=== PATIENT | female | born 1950 | race Caucasian/White ===

== ENCOUNTER 2017-12-09 12:52 | Outpatient (RCR) | payer OTHER, SELFPAY ==
--- NOTE | 2017-12-09 17:48 | PT.OTN ---
Current Diagnoses Benign paroxysmal vertigo, unspecified ear Transition note: On December 06, 2017 our therapy services consisting of Speech, Occupational, and Physical Therapy transitioned from the [employer] electronic documentation system to a new [employer] electronic documentation system.?? All documentation prior to December 06 can be found under [employer] saved data. From December 06 forward all medical record documentation will be in [employer] 6.1.
--- NOTE | 2017-12-12 08:21 | PT.OIE ---
Current Diagnoses Benign paroxysmal vertigo, unspecified ear (12/09/17) Past Medical History (Last Updated 12/12/17 @ 07:48 by Eladia Aj, PT) After cataract of right eye not obscuring vision (Acute) Strabismus, mechanical (Acute) Physical Therapy Initial Evaluation PT-OP-A Visit Information Start: 12/09/17 08:12 Freq: Status: Active Protocol: Activity Type Activity Date Activity User E-Sign Co-Sign Detail Recorded Client Recorded Date Recorded By Document 12/09/17 14:15 AMB [email or web address] 12/09/17 14:16 AMB 12/09/17 14:15 Out-Patient Physical Therapy Visit Information [Visit Information] -Visit Type Initial Evaluation -Visit Note 15 visits authorized until 02/20/18 -Visit Start Time 13:00 -Visit Stop Time 13:45 -Total Visit Minutes 45 -Visit Number 1 [Evaluation Information] -Evaluation Date 12/09/17 PT-OP-B Current Condition Start: 12/09/17 08:12 Freq: Status: Active Protocol: Activity Type Activity Date Activity User E-Sign Co-Sign Detail Recorded Client Recorded Date Recorded By Document 12/09/17 14:15 AMB [email or web address] 12/12/17 07:46 AMB 12/09/17 14:15 Current Condition [History of Current Condition] -Current Complaints Spinning dizziness getting in and out of bed -History of Current Condition The patient states that in 1995 she had her first episode of BPPV . She had a bad bout of it in July 2017 at which point she came to this clinic and I worked with her for a few visits until her symptoms resolved. About a month ago the symptoms resolved. [Prior Functional Status] -Baseline Function- ADL's Independent -Baseline Function- Mobility Independent [Current Functional Impairments ( Reported)] -Functional Limitations- ADL's Pt requires extra time due to feeling off balance [Personal Factors] -Other Personal Factors That May Recurrent Effect Therapy/Recovery history of BPPV , R eye has had two surgeries to tie the muscles because it was lazy PT-OP-C Subjective Start: 12/09/17 08:12 Freq: Status: Active Protocol: Activity Type Activity Date Activity User E-Sign Co-Sign Detail Recorded Client Recorded Date Recorded By Document 12/09/17 14:15 AMB [email or web address] 12/12/17 07:46 AMB 12/09/17 14:15 OP-PT Subjective [Patient Comments] -Patient Comments The patient states she was not spinning this morning, but still feels a bit off. She tried a couple self Maldonado treatments, but they did not seem to help. PT-OP-O Vestibular Start: 12/09/17 08:12 Freq: Status: Active Protocol: Activity Type Activity Date Activity User E-Sign Co-Sign Detail Recorded Client Recorded Date Recorded By Document 12/09/17 14:15 AMB [email or web address] 12/12/17 07:56 AMB 12/09/17 14:15 Vestibular Assessment [Visual Testing] -Smooth Pursuits Horizontal Difficult with R eye, more weakness than dizziness -Gaze Evoked Nystagmus With Fixation Negative -Gaze Evoked Nystagmus Without Negative Fixation -Thrust Head Positive Right -Convergence Test Impaired -Spontaneous Nystagmus Negative -Vestibulo-Ocular Reflex (VOR1) Positive [Positional Testing] -[place]-Hallpike Negative Left Negative Right -Rolling Test Negative Left Negative Right -Cervical Vertigo Test Negative PT-OP-T Assessment and Plan Start: 12/09/17 08:12 Freq: Status: Active Protocol: Activity Type Activity Date Activity User E-Sign Co-Sign Detail Recorded Client Recorded Date Recorded By Document 12/09/17 14:15 AMB [email or web address] 12/12/17 08:18 AMB 12/09/17 14:15 Physical Therapy Assessment [Rehab Potential] -Rehabilitation Potential Good [Evaluation Complexity] -Number of Personal Factors/ 1-2 Comorbidities -Number of Body Systems Impaired 1-2 -Clinical Presentation at Evaluation Stable [Impairments] -Impairments Functional Mobility Vestibular [Goals] 1 -Impairment Dizziness -Short Term Goal (STG) The patient will get in and out of bed without dizziness. -STG Duration 4 weeks -Custodial Goal (LTG) The patient will return to yoga without dizziness. -LTG Duration 6 weeks [Assessment Summary] -Assessment The patient denied dizziness and did not show visible nystagmus with positional testing. Given that she has had spinning dizziness for the past month, and that she did not have spinning getting in our out of bed the last 2 days, her BPPV may have resolved. We will keep her case open for the next month, in case her symptoms return. Physical Therapy Plan [Frequency and Duration] -Frequency of Treatment 1x/Week -Duration of Treatment 6 weeks -Plan of Care Start Date 12/09/17 -Plan of Care End Date 01/20/18 [Therapeutic Interventions] -Therapeutic Interventions Balance Training Canalithic Repositioning Neuromuscular Re-education Self-Care/Home Management Therapeutic Activities Therapeutic Exercises Vestibular Rehabilitation [Hold Physical Therapy] -Reason For Hold Patient without dizziness or nystagmus with Jeannine-Hallpike. Hold treatment for 1 month or return if symptoms return . Provider Signature Date
--- NOTE | 2017-12-12 08:27 | PT.OPPOC ---
Current Diagnoses Benign paroxysmal vertigo, unspecified ear (12/09/17) Plan Of Care PT-OP-T Assessment and Plan Start: 12/09/17 08:12 Freq: Status: Active Protocol: Activity Type Activity Date Activity User E-Sign Co-Sign Detail Recorded Client Recorded Date Recorded By Document 12/09/17 14:15 AMB [email or web address] 12/12/17 08:18 AMB 12/09/17 14:15 Physical Therapy Assessment [Rehab Potential] -Rehabilitation Potential Good [Evaluation Complexity] -Number of Personal Factors/ 1-2 Comorbidities -Number of Body Systems Impaired 1-2 -Clinical Presentation at Evaluation Stable [Impairments] -Impairments Functional Mobility Vestibular [Goals] 1 -Impairment Dizziness -Short Term Goal (STG) The patient will get in and out of bed without dizziness. -STG Duration 4 weeks -Director Process Engineering Goal (LTG) The patient will return to yoga without dizziness. -LTG Duration 6 weeks [Assessment Summary] -Assessment The patient denied dizziness and did not show visible nystagmus with positional testing. Given that she has had spinning dizziness for the past month, and that she did not have spinning getting in our out of bed the last 2 days, her BPPV may have resolved. We will keep her case open for the next month, in case her symptoms return. Physical Therapy Plan [Frequency and Duration] -Frequency of Treatment 1x/Week -Duration of Treatment 6 weeks -Plan of Care Start Date 12/09/17 -Plan of Care End Date 01/20/18 [Therapeutic Interventions] -Therapeutic Interventions Balance Training Canalithic Repositioning Neuromuscular Re-education Self-Care/Home Management Therapeutic Activities Therapeutic Exercises Vestibular Rehabilitation [Hold Physical Therapy] -Reason For Hold Patient without dizziness or nystagmus with Jeannine-Hallpike. Hold treatment for 1 month or return if symptoms return . Plan of Care Dates Plan of Care Start Date 12/09/17 Plan of Care End Date 01/20/18 Provider Visit Care Team Role Provider Type GLEN Vieyra Family Provider Non-Staff Primary Care Provider Specialty: Medical Address: [address] [place] [address], [id number] Email: Hardeep Oakes MD Attending Provider Non-Staff Specialty: Medical Address: [address] [place] [address], [phone] Email: Please Sign and Return: I have reviewed this Plan of Care and certify that the skilled therapy services above are required to meet the patient???s needs. Physician Signature Date Printed Name and Credentials
--- NOTE | 2018-01-27 10:29 | PT.OPDS ---
Current Diagnoses Benign paroxysmal vertigo, unspecified ear (12/09/17) Provider Visit Care Team Role Provider Type GLEN Vieyra Family Provider Non-Staff Primary Care Provider Specialty: Medical Address: [address] [place] [address], [id number] Email: Hardeep Oakes MD Attending Provider Non-Staff Specialty: Medical Address: [address] [place] [address], [phone] Email: Discharge Summary PT-OP-B Current Condition Start: 12/09/17 08:12 Freq: Status: Active Protocol: Document 12/09/17 14:15 AMB (Rec: 12/12/17 07:46 AMB [email or web address]) Current Condition History of Current Condition Current Complaints Spinning dizziness getting in and out of bed History of Current Condition The patient states that in 1995 she had her first episode of BPPV. She had a bad bout of it in July 2017 at which point she came to this clinic and I worked with her for a few visits until her symptoms resolved. About a month ago the symptoms resolved. Prior Functional Status Baseline Function- ADL's Independent Baseline Function- Mobility Independent Current Functional Impairments (Reported) Functional Limitations- ADL's Pt requires extra time due to feeling off balance Personal Factors Other Personal Factors That May Effect Recurrent history of BPPV, R Therapy/Recovery eye has had two surgeries to tie the muscles because it was lazy PT-OP-C Subjective Start: 12/09/17 08:12 Freq: Status: Active Protocol: Document 12/09/17 14:15 AMB (Rec: 12/12/17 07:46 AMB [email or web address]) OP-PT Subjective Patient Comments Patient Comments The patient states she was not spinning this morning, but still feels a bit off. She tried a couple self Maldonado treatments, but they did not seem to help. PT-OP-O Vestibular Start: 12/09/17 08:12 Freq: Status: Active Protocol: Document 12/09/17 14:15 AMB (Rec: 12/12/17 07:56 AMB [email or web address]) Vestibular Assessment Visual Testing Smooth Pursuits Horizontal Difficult with R eye, more weakness than dizziness Gaze Evoked Nystagmus With Fixation Negative Gaze Evoked Nystagmus Without Fixation Negative Thrust Head Positive Right Convergence Test Impaired Spontaneous Nystagmus Negative Vestibulo-Ocular Reflex (VOR1) Positive Positional Testing [place]-Hallpike Negative Left Negative Right Rolling Test Negative Left Negative Right Cervical Vertigo Test Negative PT-OP-T Assessment and Plan Start: 12/09/17 08:12 Freq: Status: Active Protocol: Document 01/27/18 10:28 AMB (Rec: 01/27/18 10:29 AMB [email or web address]) Physical Therapy Plan Discharge Physical Therapy Discharge Comments The patient has not been seen for over 1 month, she has not called back with any dizziness . She is therefore discharged .
== END 2018-05-19 10:05 ==
LOC: PHYS 12:52
PROVIDERS: Family Provider Nurse Practitioner Family; PCP Nurse Practitioner Family
DX: H81.10 Benign paroxysmal vertigo, unspecified ear (principal)
CPT/HCPCS: 97161

== ENCOUNTER → 2018-02-03 13:28 | Outpatient (CLI) | payer OTHER, SELFPAY | PROVIDERS: Family Provider Nurse Practitioner Family; PCP Nurse Practitioner Family; Visit Provider Nurse Practitioner Family | DX: M85.851 Other specified disorders of bone density and structure, right thigh (principal); M85.852 Other specified disorders of bone density and structure, left thigh; Z78.0 Asymptomatic menopausal state | CPT/HCPCS: 77080 ==

== ENCOUNTER → 2018-03-01 08:50 | Outpatient (CLI) | payer OTHER, SELFPAY ==
--- NOTE | 2018-03-01 | DI.MG.S_ITS ---
BILATERAL DIGITAL SCREENING MAMMOGRAM 3D/2D WITH CAD: 03/01/2018 CLINICAL: Routine screening. Comparison is made to exams dated: 08/21/2015 mammogram, 08/24/2013 mammogram, and 03/23/2012 mammogram - [facility]. The tissue of both breasts is heterogeneously dense. This may lower the sensitivity of mammography. Current study was also evaluated with a Computer Aided Detection (CAD) system. No significant masses, calcifications, or other findings are seen in either breast. There has been no significant interval change. IMPRESSION: NEGATIVE There is no mammographic evidence of malignancy. A 1 year screening mammogram is recommended. This exam was interpreted at Station ID: [id number]. NOTE: For mammograms, a report in lay terms will be sent to the patient. Approximately 15% of breast malignancies will not be visualized mammographically. In the management of a palpable breast mass, a negative mammogram must not discourage biopsy of a clinically suspicious lesion. Electronically Signed By: Gurwinder mccray/darnell:03/02/2018 17:00:05 letter sent: Normal Exam ACR BI-RADS Category 1: Negative 3341F
== END ==
PROVIDERS: Family Provider Nurse Practitioner Family; PCP Nurse Practitioner Family; Visit Provider Nurse Practitioner Family
DX: Z12.31 Encounter for screening mammogram for malignant neoplasm of breast (principal)
CPT/HCPCS: 77063; 77067

== ENCOUNTER → 2019-03-08 13:59 | Outpatient (CLI) | payer OTHER, SELFPAY ==
--- NOTE | 2019-03-08 | DI.RAD.S_ITS ---
PROCEDURE: XR CHEST 2V INDICATIONS: uri, painful cough, exacerbation of asthma TECHNIQUE: 2 views of the chest were acquired. COMPARISON: None. FINDINGS: Surgical changes and devices: None. Lungs and pleura: Lungs are clear. No pleural effusions or pneumothorax. Mediastinum: Mediastinal contours are normal. Heart size is normal considering a prominent there is excavatum chest wall morphology. Bones and chest wall: No suspicious bony abnormalities. Soft tissues appear unremarkable. IMPRESSION: Normal cardiac silhouette when prominent there is excavatum chest wall morphology is taken into account. No pneumonia found. Dictated by: Jose Alfredo Perrin M.D. on 03/08/2019 at 14:25 Approved by: Jose Alfredo Perrin M.D. on 03/08/2019 at 14:26
== END ==
PROVIDERS: PCP Nurse Practitioner Family; Visit Provider Nurse Practitioner Family
DX: J06.9 Acute upper respiratory infection, unspecified (principal); J45.901 Unspecified asthma with (acute) exacerbation; R05 Cough
CPT/HCPCS: 71046

== ENCOUNTER → 2019-03-16 16:35 | Outpatient (CLI) | payer OTHER, SELFPAY ==
--- NOTE | 2019-03-16 16:38 | DI.RAD.S_ITS ---
PROCEDURE: XR RIBS RT 2V INDICATIONS: PAIN TECHNIQUE: 2 views of the right ribs were acquired. COMPARISON: None. FINDINGS: Surgical changes and devices: None. Bones and chest wall: No fractures or dislocations. No suspicious bony lesions. Overlying soft tissues appear unremarkable. Lungs and pleura: The visualized lung appears clear. No pleural effusions or pneumothorax are visible. IMPRESSION: No displaced rib fractures visualized. Dictated by: Katherine Dela Cruz M.D. on 03/16/2019 at 16:53 Approved by: Katherine Dela Cruz M.D. on 03/16/2019 at 16:54
== END ==
PROVIDERS: PCP Nurse Practitioner Family; Visit Provider Nurse Practitioner Family
DX: R07.89 Other chest pain (principal)
CPT/HCPCS: 71100

== ENCOUNTER → 2019-03-23 07:51 | Outpatient (CLI) | payer OTHER, SELFPAY ==
--- NOTE | 2019-03-23 | DI.MG.S_ITS ---
BILATERAL DIGITAL SCREENING MAMMOGRAM 3D/2D WITH CAD: 03/23/2019 CLINICAL: Routine screening. Comparison is made to exams dated: 03/01/2018 mammogram - [facility], 08/21/2015 mammogram, 08/24/2013 mammogram, and 03/23/2012 mammogram - [facility]. The tissue of both breasts is heterogeneously dense. This may lower the sensitivity of mammography. Current study was also evaluated with a Computer Aided Detection (CAD) system. No significant masses, calcifications, or other findings are seen in either breast. There has been no significant interval change. IMPRESSION: NEGATIVE There is no mammographic evidence of malignancy. A 1 year screening mammogram is recommended. This exam was interpreted at Station ID: [id number]. NOTE: For mammograms, a report in lay terms will be sent to the patient. Approximately 15% of breast malignancies will not be visualized mammographically. In the management of a palpable breast mass, a negative mammogram must not discourage biopsy of a clinically suspicious lesion. Electronically Signed By: Randall weir/darnell:03/23/2019 08:40:31 letter sent: Normal Exam ACR BI-RADS Category 1: Negative 3341F
== END ==
PROVIDERS: PCP Nurse Practitioner Family; Visit Provider Nurse Practitioner Family
DX: Z12.31 Encounter for screening mammogram for malignant neoplasm of breast (principal)
CPT/HCPCS: 77063; 77067

== ENCOUNTER → 2020-03-25 10:45 | Outpatient (CLI) | payer OTHER, SELFPAY ==
--- NOTE | 2020-03-25 | DI.US.S_ITS ---
PROCEDURE: US THYROID INDICATIONS: ROUTINE SCREENING TECHNIQUE: Real-time scanning was performed of the thyroid gland, with image documentation. COMPARISON: None. FINDINGS: Right: Thyroid lobe measures 5.1 x 1.1 x 1.7 cm, and is diffusely heterogeneous in echotexture. Multiple sub 5 mm nodules in cyst present. Left: Thyroid lobe measures 4.0 x 1.2 x 1.6 cm, and is diffusely heterogeneous in echotexture. Multiple sub 5 mm nodules in cyst present. Isthmus: 2.5 mm thick. IMPRESSION: Multiple sub 5 mm bilateral thyroid cysts and nodules. Given the small sizes, no follow-up is warranted. Dictated by: Cornell SANTANA Interpreted: Ajit Dela Cruz MD on 03/25/2020 at 15:44 Approved by: Ajit Dela Cruz M.D. on 03/25/2020 at 16:36
--- NOTE | 2020-03-25 | DI.MG.S_ITS ---
BILATERAL DIGITAL SCREENING MAMMOGRAM 3D/2D WITH CAD: 03/25/2020 CLINICAL: Routine screening. Comparison is made to exams dated: 03/23/2019 mammogram, 03/01/2018 mammogram - [facility], and 08/21/2015 mammogram - [facility]. The tissue of both breasts is heterogeneously dense. This may lower the sensitivity of mammography. Current study was also evaluated with a Computer Aided Detection (CAD) system. No significant masses, calcifications, or other findings are seen in either breast. There has been no significant interval change. IMPRESSION: NEGATIVE There is no mammographic evidence of malignancy. A 1 year screening mammogram is recommended. This exam was interpreted at Station ID: [id number]. NOTE: For mammograms, a report in lay terms will be sent to the patient. Approximately 15% of breast malignancies will not be visualized mammographically. In the management of a palpable breast mass, a negative mammogram must not discourage biopsy of a clinically suspicious lesion. Electronically Signed By: Esau borja/darnell:03/25/2020 12:21:46 letter sent: Normal Exam ACR BI-RADS Category 1: Negative 3341F
== END ==
PROVIDERS: PCP Internal Medicine; Referring Provider Internal Medicine; Visit Provider Internal Medicine
DX: Z12.31 Encounter for screening mammogram for malignant neoplasm of breast (principal); M85.852 Other specified disorders of bone density and structure, left thigh; Z78.0 Asymptomatic menopausal state; E04.2 Nontoxic multinodular goiter; Z87.891 Personal history of nicotine dependence
CPT/HCPCS: 76536; 77063; 77067; 77080

== ENCOUNTER → 2020-07-31 09:27 | Outpatient (CLI) | payer OTHER, SELFPAY ==
--- NOTE | 2020-07-31 09:29 | DI.CT.S_ITS ---
PROCEDURE: CT KIDNEY URETER BLADDER (KUB) INDICATIONS: Cyst of kidney, acquired TECHNIQUE: Noncontrast 5 mm thick sections acquired from the diaphragms to the symphysis. 5 mm thick coronal and sagittal reformats were then performed. For radiation dose reduction, the following was used: automated exposure control, adjustment of mA and/or kV according to patient size. COMPARISON: No prior relevant studies are available for review at the time of this dictation. FINDINGS: Image quality: Excellent. Lung bases: Lung bases are clear. Heart size is normal. There is pectus excavatum deformity. Urinary system: Both kidneys are normal in size. No kidney stones. No hydronephrosis or perinephric fat stranding. Both ureters appear non-dilated throughout their expected courses. Bladder wall thickness is normal; no calcified bladder stones. Other solid organs: Liver is normal in size. Gallbladder wall is not thickened. Pancreas is normal in contours. Spleen is normal in size. No adrenal nodules. Peritoneum and bowel: Unenhanced bowel loops demonstrate normal wall thickness and caliber. No free fluid or air. A normal appendix is incidentally noted. Colonic diverticulosis is seen, without findings of active diverticulitis. Nodes and vessels: No retroperitoneal or mesenteric adenopathy by size criteria. Aorta and inferior vena cava are normal in caliber. Abdominal wall: No ventral hernias. Pelvis: No free pelvic fluid. No inguinal hernias or adenopathy. There is a 4.7 cm left adnexal cyst seen. The internal density measures water density. No phillip wall thickening can be seen on this noncontrast study. The uterus is atrophic. Bones: No suspicious bony lesions. No vertebral body compression fractures. Moderate to severe disc space narrowing is seen at L5-S1, with associated mild grade 1 anterolisthesis and bilateral L5 pars defects. IMPRESSION: No kidney cysts are seen. There is a 4.7 cm left ovarian cyst, without phillip suspicious features. In a patient of this age, concern is raised for cystic ovarian neoplasm. A gynecology consultation is recommended. Incidental note is made of: Pectus excavatum deformity Normal appendix Diverticulosis, without active diverticulitis Focal L5-S1 degenerative change with anterolisthesis and bilateral pars defects Dictated by: Bart Kelly M.D. on 07/31/2020 at 9:17 Approved by: Bart Kelly M.D. on 07/31/2020 at 9:25
== END ==
PROVIDERS: PCP Internal Medicine; Referring Provider Internal Medicine; Visit Provider Internal Medicine
DX: N28.1 Cyst of kidney, acquired (principal); N83.202 Unspecified ovarian cyst, left side; K57.90 Diverticulosis of intestine, part unspecified, without perforation or abscess without bleeding; M47.817 Spondylosis without myelopathy or radiculopathy, lumbosacral region; M43.17 Spondylolisthesis, lumbosacral region
CPT/HCPCS: 74176

== ENCOUNTER → 2020-09-10 14:18 | Outpatient (CLI) | payer OTHER, SELFPAY ==
[2020-09-10 14:47] LABS: COVID19 -Nasal RAPID Negative (Negative)
== END ==
PROVIDERS: PCP Internal Medicine; Visit Provider Obstetrics & Gynecology
DX: Z01.812 Encounter for preprocedural laboratory examination (principal); Z20.822 Contact with and (suspected) exposure to COVID-19
CPT/HCPCS: 87635

== ENCOUNTER 2020-09-11 08:34 | Day surgery (SDC) | payer OTHER, SELFPAY ==
[2020-09-11] VITALS (10 sets, daily range): BP systolic 122–134; BP diastolic 48–72; PULSE 65–75; RESP 12–100; TEMP 36.4–37.2; O2SAT 98–100; BMI 20.9
--- NOTE | 2020-09-11 | PATH_ITS ---
[facility] Accession Number: [id number] . 01 Material submitted: . PART A: FALLOPIAN TUBES/OVARY/FIBROID - BILATERAL FALLOPIAN TUBES AND OVARIES AND UTERINE FIBROID PART B: endometrium - ENDOMETRIAL POLYP . 01 Clinical history: . A: BILATERAL FALLOPIAN TUBES AND OVARIES AND UTERINE FIBROID, LEFT OVARY HAS CYST . 02 Diagnosis: A. Bilateral Fallopian Tubes and Ovaries and Uterine Fibroid, Bilateral Salpingo-oophorectomy and Myomectomy: Left ovary with a single, benign, unilocular cystadenoma (6.0 x 4.5 x 4.2 cm) with patchy luteinization and calcification of the cyst lining. Left fallopian tube with no significant histomorphologic abnormality. Right ovary involved by endosalpingiosis and with benign serous cysts (1-12 mm in greatest dimension). Detached right fallopian tube with no significant histomorphologic abnormality. Portions of leiomyoma (0.7 and 1.7 cm); negative for cytologic atypia, increased mitotic activity, or necrosis. . B. Endometrial Polyp: Multiple portions of benign endometrial polyp; negative for glandular hyperplasia, cytologic atypia, or malignancy. [facility] 09/19/2020 1444 Local . 02 Electronically signed: . Barbara Cotton MD, Pathologist NPI- [id number] . 01 Gross description: . A. The specimen is received in formalin, labeled bilateral fallopian tubes and ovaries, and uterine fibroids, and consists of a left cystic ovary measuring 6.0 x 4.5 x 4.2 cm. The external surface is echols-pink to echols-yellow with multiple cysts on the external surface ranging from 0.1 cm to 0.2 cm. Sectioning reveals a echols, smooth underlining with no papillary excrescences. The cysts contain yellow tinged serous fluid. The attached left fallopian tube measures 6.5 cm in length by 0.7 cm in diameter and displays a echols-pink, smooth serosa. Sectioning reveals a echols mucosa and a stellate lumen measuring 0.2 cm in diameter. The right ovary measures 2.0 x 1.5 x 1.0 cm. The external surface is echols-yellow and cerebriform. Sectioning reveals multiple echols-pink, smooth-walled cysts ranging from 0.1 cm to 1.2 cm with no papillary excrescences. There is a detached fallopian tube measuring 6.0 cm in length by 0.5 cm in diameter with a echols-pink, smooth serosa. Sectioning reveals a echols mucosa with a stellate lumen measuring 0.2 cm in diameter. Also received are two firm, echols-pink leiomyomata measuring 0.7 cm and 1.7 cm. Sectioning reveals echols, whorled cut surfaces with no areas of hemorrhage, necrosis, or cystic degeneration. Personal Financial Counselor sections are submitted. A1-A3: Left cystic ovary. A4-A5: Left fallopian tube, bisected fimbria, margin (blue), and central cross-sections. A6: Personal Financial Counselor right ovary. A7: Detached fallopian tube, margin (blue), bisected fimbria, and central cross-sections. A8: Personal Financial Counselor leiomyomata. A9-A12: Additional personal service representative sections of cyst (outer surface inked blue). ([id number]) B. The specimen is received in formalin, labeled endometrial polyp, and consists of multiple echols fragments of soft tissue, mucus, and clotted blood measuring 3.0 x 2.5 x 0.5 cm in aggregate. The specimen is entirely submitted in cassette B1. ([id number]) /[facility] 09/17/2020 0942 Local . 02 Pathologist provided ICD-10: N84.0, N83.209, N95.0 . 02 CPT . 640849, [id number] Performed at: 01 [facility] [address] [place] [address], [place], [place] [id number] MD Dylan Bourgeois MD Phone: [phone] Performed at: [facility] [place] [address] [place], [place] [id number] MD Jaja Del Toro MD Phone: [phone]
[2020-09-11] MEDS: LACTATED RINGERS 1,000 ML 100 ML IV ×2 (09:17→15:48)
--- NOTE | 2020-09-11 13:36 | SUR.PREOP ---
pt has been kept informed of delay, comfort measures provided, warm blankets and ehsan hugger provided, pt has been up to BR for relief, moist sponge for oral care provided.
--- NOTE | 2020-09-11 14:46 | P.OP_ITS ---
Operative Date/Time/Diagnoses Date of procedure: 09/11/20 Time of procedure: 17:07 Pre-op diagnosis: Left ovarian cyst Postmenopausal bleeding Thickened endometrial lining Post-op diagnosis: same Procedure & Clinicians Procedure: Procedures Operation Date: 09/11/20 09:45 <No data on this case meets the specified criteria> Indications: Left ovarian cyst Postmenopausal bleeding Thickened endometrial lining Surgeon: Candace Green Anesthesia Type: General and Local Operative Notes Findings: Six week size anteverted uterus Subserosal fibroid measuring 5 cm Multiple smaller subserosal intramural fibroids 7 cm left ovarian cyst Normal tubes Normal right ovary Endometrial polyp Normal appendix Normal liver and gallbladder Closure Type: primary Specimen(s): endometrial polyp, left tube & ovary, right tube & ovary and other (subserosal fibroid) Estimated blood loss (mL): 10 Procedure in detail: After informed consent was obtained, the patient was taken to the operating room where she was placed in the dorsal supine position. After adequate general endotracheal anesthesia was achieved, she was placed in the dorsal lithotomy position, and prepped and draped in the usual sterile fashion. A time-out was performed. A bivalve speculum was placed into the vagina and the anterior lip of the cervix grasped with a single-tooth tenaculum. The cervical os was sequentially dilated until the Zumi uterine manipulator could pass easily into the endometrial cavity. The single-tooth tenaculum was removed from the anterior lip of the cervix. The bivalve speculum was removed from the vagina. Attention was turned to the abdomen where 6 cc of 0.5% Marcaine with epinephrine were injected in the umbilical fold. A 5 mm incision was made. The Veress needle was placed into the peritoneal cavity, and its placement confirmed by aspiration and drop test. The abdominal cavity was insufflated with 3.8 L of CO2, to a pressure of 15 mm, and then the Veress needle was removed. A 5 mm trocar was placed. The pelvis and abdomen were examined with findings noted above. Two other 5 mm trocars were placed lateral to the midline, approximately 4 cm, the level of the umbilicus after 6 cc of 0.5% Marcaine with epinephrine were injected. These were placed under direct visualization. The right tube and ovary were grasped with an atraumatic grasper. Using the PlasmaKinetic was settings of 40 w, the infundibulopelvic ligament on the right side was cauterized and cut. The mesosalpinx was cauterized and cut all the way down to the cornua of the uterus where the tube was amputated. The utero-ovarian ligament was cauterized and cut. The right tube and ovary were placed into the anterior cul-de-sac. This was repeated on the patient's left side. The left ovary with this cyst and the left fallopian tube were placed into the anterior cul-de-sac. The anterior subserosal fibroid was grasped with an atraumatic grasper. Using the PlasmaKinetic, the pedicle was cauterized and cut. The fibroid was also placed into the anterior cul-de-sac. A 4th incision, 12 mm, was made above the pubic symphysis after 6 cc of 0.5% Marcaine with epinephrine were injected. A 12 mm trocar was placed. An endobag was placed through the 12 mm trocar. The tubes, ovaries, and fibroid were placed into the bag. The trocar was removed. The edges of the bag were brought up through the skin. The cyst was drained using a 20 cc syringe and a spinal needle. The bag was then removed with the ovaries, tubes, and fibroid. The pelvis was copiously irrigated. Hemostasis was achieved. The appendix, gallbladder, and liver were examined and were found to be normal. There were numerous other small sub serosal fibroids. The instruments were removed from the abdomen. The CO2 was allowed to escape. The suprapubic incision was closed on the fascia with 0 Vicryl. The subcutaneous layer was irrigated with warm normal saline. Two simple interrupted sutures were placed in the subcutaneous layer to reapproximate. All of the incisions were closed with 4 0 Biosyn in a subcuticular fashion. Steri-Strips and Allevyn dressings were placed. Attention was turned to the vagina where the Zumi uterine manipulator was removed from the uterus. A bivalve speculum was placed into the vagina. A single-tooth tenaculum was placed on the anterior lip of the cervix. The cervical os was dilated to the # 9 Hegar dilator. The hysteroscope passed easily into the endometrial cavity. There was a large lower uterine segment polyp. The hysteroscope was removed from the uterus. The resectoscope passed easily into the endometrial cavity and with the loop with settings at 80 cut and 60 cautery, the polyp was resected in 4 pieces. The polyp forceps were used to remove the pieces. A repeat hysteroscopy was performed which revealed no remaining polyps. The instruments were removed from the uterus. The single- tooth tenaculum was removed from the anterior lip of the cervix. The bivalve speculum was removed from the vagina. Sponge, lap, and instrument counts were correct x2. The patient tolerated the procedure well, and was taken to PACU in stable condition. Complications: none Post-operative Condition: stable Disposition: PACU Plan for aftercare: Home after recovery
--- NOTE | 2020-09-11 14:47 | PM.HP.1 ---
History of Present Illness History of Present Illness Date Patient Seen: 09/11/20 Time Patient Seen: 14:47 Chief complaint: SDC *$400 copay* Narrative: Patient is a 70 year 1 para 0 with a left ovarian cyst, postmenopausal bleeding, and an endometrial polyp. She is scheduled for a laparoscopic bilateral salpingo-oophorectomy, D&C hysteroscopy with polypectomy. Patient History Medical History (Updated 08/28/20 @ 22:23 by Julissa Root) After cataract of right eye not obscuring vision (~2015) Allergies Asthma (~1994) Chronic back pain (~1979) Diverticular disease (~1997) Former smoker Hypercholesterolemia Osteoarthritis (~1999) Retinal detachment (~2015) Shoulder pain (~1999) Strabismus, mechanical Vertigo (~1991) Surgical History (Updated 08/28/20 @ 22:23 by Julissa Root) Anesthesia H/O arthroplasty History of dilatation and curettage History of eye surgery History of mandibular surgery (~1997) History of thumb surgery Family & Social History Family History (Updated 08/28/20 @ 22:27 by Julissa Root) Father ALS (amyotrophic lateral sclerosis) Mother Kidney failure Brother COPD (chronic obstructive pulmonary disease) Cirrhosis Sister ALS (amyotrophic lateral sclerosis) Grandfather Stroke Grandfather History of heart disease Grandmother Parkinson's disease Social History: household members none Tobacco & Substance use: Tobacco type cigarettes Smoking Status Former smoker alcohol intake frequency a few times a week Substance Use Type does not use Meds Home Medications and Allergies Home Medications Medication Instructions Recorded Confirmed Type cetirizine 10 mg PO QDAY #0 01/18/17 09/11/20 History estradiol 0.5 mg PO QDAY #0 01/18/17 09/11/20 History atorvastatin 20 mg tablet 20 mg PO DAILY 08/25/20 09/11/20 History ciclesonide 80 mcg/actuation 2 puff INHALATION BID 08/25/20 09/11/20 History aerosol inhaler progesterone micronized 100 mg 100 mg PO QAM 08/26/20 09/11/20 History capsule Allergies Allergy/AdvReac Type Severity Reaction Status Date / Time nitrofurantoin Allergy Intermediate n/v Verified 09/11/20 08:44 [From MACROBID] azithromycin Allergy Hives Verified 09/11/20 08:44 [From Zithromax Z-Keaton] Exam Vital Signs (past 8 hours): - 09/11/20 08:59 Temperature 97.5 F L Pulse Rate 72 Respiratory Rate 16 Blood Pressure 122/72 Pulse Oximetry 100 Oxygen Delivery Method Room Air Narrative Exam Narrative: HEENT: [No thyromegaly, no anterior cervical or supraclavicular lymphadenopathy.] Lungs:[Clear to auscultation bilaterally, no wheezes.] Cardiovascular: [Regular rate and rhythm, no murmurs, rubs, or gallops]. Abdomen: [No scars. No hepatosplenomegaly. No masses palpable.] External genitalia: [Normal] Vagina: [Normal] Cervix: [Normal] Bimanual exam: 6 Week size anteverted uterus. Mobile. Left adnexal fullness and tenderness. Rectal: [No masses]. Assessment & Plan Assessment & Plan narrative: Assessment: 70-year-old 1 para 0 with a left ovarian cyst, postmenopausal bleeding, endometrial polyp, endometrial calcifications Plan: Laparoscopic bilateral salpingo-oophorectomy, D&C hysteroscopy with polypectomy and possible directed biopsies The risks, benefits, and alternatives to the procedure were explained to the patient. The risks including bleeding, infection, injury to the bowel, bladder, or ureters, or uterine perforation. She understands these risks and agrees to proceed. A full par Q was held and consent form was signed. COVID-19 COVID-19 status: Negative Result date/Date tested (Pos, Neg/Pending): 09/10/20 Time Spent With Patient Time with patient: 15-24 minutes
--- NOTE | 2020-09-11 14:50 | PM.PREOP ---
Pre-operative Note COVID-19 COVID-19 status: Negative Result date/Date tested (Pos, Neg/Pending): 09/10/20 Interval Note History & Physical reviewed/Exam performed by Physician: Yes Changes to H&P: No H&P completed within 30 days and has changed as indicated here:: 09/11/20
--- NOTE | 2020-09-11 15:36 | SUR.OPER ---
Lithotomy on padded OR bed, head on pillow, arms secured on padded arm boards at <90 degrees abduction. Legs secured in padded yellow fins stirrups.
[2020-09-11] MEDS: BUPIVACAINE 0.5% W/ EPI (PF) 30 ML VIAL INJ (15:59)
[2020-09-11] MEDS: OXYCODONE/ACETAMINOPHEN 5/325 TABLET 1 TAB PO ×2 (17:46→18:17)
== END 2020-09-11 18:43 | disposition home or self-care (01) ==
PROVIDERS: PCP Internal Medicine; Referring Provider Internal Medicine; Visit Provider Obstetrics & Gynecology
PROC: 0UT24ZZ Resection of Bilateral Ovaries, Percutaneous Endoscopic Approach (ICD-10-PCS; CPT 58661; principal; 2020-09-11 09:45)
PROC: 0UDB8ZZ Extraction of Endometrium, Via Natural or Artificial Opening Endoscopic (ICD-10-PCS; CPT 58558; 2020-09-11 09:45)
DX: N84.0 Polyp of corpus uteri (principal); D25.2 Subserosal leiomyoma of uterus; N94.89 Other specified conditions associated with female genital organs and menstrual cycle; D27.1 Benign neoplasm of left ovary
CPT/HCPCS: 58661; 58558; 58662; J1100; J1885; J2405; J2704; J3010

== ENCOUNTER → 2021-05-06 08:04 | Outpatient (CLI) | payer OTHER, SELFPAY ==
--- NOTE | 2021-05-06 | DI.RAD.S_ITS ---
PROCEDURE: XR KNEE RT 1TO2V INDICATIONS: m25.561 TECHNIQUE: 2 views of the knee were acquired. COMPARISON: None. FINDINGS: Bones: No fractures or dislocations. No suspicious bony lesions. Soft tissues: No joint effusion. No suspicious soft tissue calcifications. IMPRESSION: No osseous lesion. If symptoms and/or clinical suspicion for pathology persists, further assessment with repeat radiographs (7-10 days) or advanced imaging (e.g. CT, MRI or bone scan) should be considered. Dictated by: Sofia Mckinley MD, PhD on 05/06/2021 at 8:18 Approved by: Sofia Mckinley MD, PhD on 05/06/2021 at 8:18
== END ==
PROVIDERS: PCP Internal Medicine; Referring Provider Internal Medicine; Visit Provider Internal Medicine
DX: M25.561 Pain in right knee (principal)
CPT/HCPCS: 73560

== ENCOUNTER → 2021-07-22 12:58 | Outpatient (CLI) | payer OTHER, SELFPAY ==
--- NOTE | 2021-07-22 | DI.MRI.S_ITS ---
PROCEDURE: MR KNEE RT WO CON INDICATIONS: Pain in right knee TECHNIQUE: Noncontrast sagittal PD fast spin echo and T2 fast spin echo with fat saturation, sagittal 3-D FLASH with fat saturation; coronal T1 spin echo and PD fast spin echo with fat saturation, and axial PD fast spin echo with fat saturation through the knee. COMPARISON: [facility], CR, XR KNEE RT 1TO2V, 05/06/2021, 8:01. FINDINGS: Image quality: Excellent. Menisci: There is a suspected subtle horizontal oblique tear at the junction of the posterior horn and body of the medial meniscus extending to the outer third of the tibial articular surface. Mild free edge fibrillation is seen at the body of the lateral meniscus without a discrete tear. Cruciate ligaments: The anterior and posterior cruciate ligaments appear intact. Medial structures: The medial collateral ligament appears intact. The semimembranosus tendon insertions and meniscocapsular junction appear intact. Visualized portions of the pes anserinus tendons appear normal. No abnormal bursal fluid. Lateral structures: The lateral collateral ligament, long and short heads of the biceps femoris tendon appear intact. The popliteus tendon appears intact. No signs of posterolateral corner injury. Iliotibial band appears normal. Anterior structures: The quadriceps and patellar tendons appear intact. Patellar alignment is normal. No femoral trochlear dysplasia or ventral trochlear prominence. No edema in the infrapatellar fat pad. Bones and cartilage: No bone marrow contusions or fractures. The articular cartilages in the medial and lateral femorotibial compartments are maintained. There is high-grade cartilage loss at the median ridge of the patella and deep cartilage fissuring in the lateral patellar facet. Joint space: There is a small joint effusion. A small medial popliteal cyst is seen. IMPRESSION: 1. Subtle horizontal oblique tear at the junction of the posterior horn and body of the medial meniscus extending to the outer third of the tibial articular surface. 2. Mild free edge fibrillation or shallow free edge tearing at the body of the lateral meniscus. 3. Focal grade 3 chondromalacia at the median ridge of the patella. 4. Intact cruciate and collateral ligaments. No acute trabecular bone injury. 5. Small joint effusion. Small medial popliteal cyst. Dictated by: Perry Velez M.D. on 07/22/2021 at 14:08 Approved by: Perry Velez M.D. on 07/22/2021 at 14:17
== END ==
PROVIDERS: PCP Internal Medicine; Referring Provider Internal Medicine; Visit Provider Internal Medicine
DX: S83.241A Other tear of medial meniscus, current injury, right knee, initial encounter (principal); M94.261 Chondromalacia, right knee; M25.461 Effusion, right knee; M71.21 Synovial cyst of popliteal space [Baker], right knee; M25.561 Pain in right knee
CPT/HCPCS: 73721

== ENCOUNTER → 2021-12-29 08:25 | Outpatient (CLI) | payer OTHER, SELFPAY ==
--- NOTE | 2021-12-29 | DI.MG.S_ITS ---
BILATERAL DIGITAL SCREENING MAMMOGRAM 3D/2D WITH CAD: 12/29/2021 CLINICAL: Routine screening. Comparison is made to exams dated: 03/25/2020 mammogram, 03/23/2019 mammogram, and 03/01/2018 mammogram - [facility]. The tissue of both breasts is heterogeneously dense. This may lower the sensitivity of mammography. Current study was also evaluated with a Computer Aided Detection (CAD) system. There is a new asymmetry in the left breast anterior depth medial region seen on the craniocaudal view only. There is architectural distortion associated with the asymmetry. No other significant masses, calcifications, or other findings are seen in either breast. IMPRESSION: INCOMPLETE: NEEDS ADDITIONAL IMAGING EVALUATION The new asymmetry in the left breast is indeterminate. Ultrasound with possible additional views are recommended. This exam was interpreted at Station ID: [id number]. NOTE: For mammograms, a report in lay terms will be sent to the patient. Approximately 15% of breast malignancies will not be visualized mammographically. In the management of a palpable breast mass, a negative mammogram must not discourage biopsy of a clinically suspicious lesion. Electronically Signed By: Eve west/darnell:12/29/2021 11:52:08 letter sent: Additional Imaging Needed ACR BI-RADS Category 0: Incomplete [id number]
== END ==
PROVIDERS: PCP Internal Medicine; Referring Provider Internal Medicine; Visit Provider Internal Medicine
DX: Z12.31 Encounter for screening mammogram for malignant neoplasm of breast (principal); N64.89 Other specified disorders of breast
CPT/HCPCS: 77063; 77067

== ENCOUNTER → 2022-01-15 10:32 | Outpatient (CLI) | payer OTHER, SELFPAY ==
--- NOTE | 2022-01-15 | DI.US.S_ITS ---
PROCEDURE: US THYROID INDICATIONS: NONTOXIC MULTINODULE GOITER TECHNIQUE: Real-time scanning was performed of the thyroid gland, with image documentation. COMPARISON: [facility], US, US THYROID, 03/25/2020, 11:30. FINDINGS: Right: Thyroid lobe measures 4.5 x 1.7 x 1.8 cm, and is homogeneous in echotexture. Left: Thyroid lobe measures 4.0 by 1.6 x 1.5 cm, and is homogenous in echotexture. Isthmus: 2 mm thick. Multiple thyroid nodules are visualized within the bilateral lobes of the thyroid, none of which are greater than 4 mm in diameter. Some of these appear cystic and some appear solid in nature. There are no microcalcifications and all are smoothly marginated. Given the small size and benign features, no further follow-up is recommended. IMPRESSION: Multiple sub 4 mm thyroid nodules bilaterally. No further follow-up recommended on the basis of imaging. ACR TI-RADS definitions and recommendations: TI-RADS 1 (benign): 0 points. FNA not needed. TI-RADS 2 (not suspicious): 2 points. FNA not needed. TI-RADS 3 (mildly suspicious): 3 points. * FNA if 2.5 cm or larger, follow up if 1.5 cm or larger (at 1, 3, and 5 years). TI-RADS 4 (moderately suspicious): 4-6 points. * FNA if 1.5 cm or larger, follow up if 1 cm or larger (at 1, 2, 3, and 5 years). TI-RADS 5 (highly suspicious): 7 points or more. * FNA if 1 cm or larger, follow up if 0.5 cm or larger (every year for 5 years). Dictated by: Katherine Dela Cruz M.D. on 01/15/2022 at 12:47 Approved by: Katherine Dela Cruz M.D. on 01/15/2022 at 12:52
== END ==
PROVIDERS: PCP Internal Medicine; Referring Provider Internal Medicine; Visit Provider Internal Medicine
DX: E04.2 Nontoxic multinodular goiter (principal); J04.0 Acute laryngitis
CPT/HCPCS: 76536

== ENCOUNTER → 2022-01-28 13:56 | Outpatient (CLI) | payer OTHER, SELFPAY ==
--- NOTE | 2022-01-28 | DI.MG.S_ITS ---
UNILATERAL LEFT DIGITAL DIAGNOSTIC MAMMOGRAM 3D/2D WITH ADDITIONAL VIEWS: 01/28/2022 CLINICAL: Additional evaluation requested from prior study. Comparison is made to exams dated: 12/29/2021 mammogram, 03/25/2020 mammogram, and 03/23/2019 mammogram - [facility]. The tissue of left breast is heterogeneously dense. This may lower the sensitivity of mammography. The previously seen asymmetry in the left breast is no longer visualized, presumably secondary to superimposed fibroglandular breast tissue on the prior exam. No architectural distortion is seen on the current exam. No significant masses, calcifications, or other findings are seen in the breast. IMPRESSION: NEGATIVE There is no mammographic evidence of malignancy. Return to annual mammogram screening schedule is recommended. Based on the Tyrer Cuzick model (a risk assessment model) the patient's lifetime risk is 5.2% and her 10 year risk is 4.2%. According to the ACR, ACS, and NCCN guidelines, an annual breast MRI exam along with mammogram is recommended if the patient's lifetime risk is 20% or greater. This exam was interpreted at Station ID: [id number]. NOTE: For mammograms, a report in lay terms will be sent to the patient. Approximately 15% of breast malignancies will not be visualized mammographically. In the management of a palpable breast mass, a negative mammogram must not discourage biopsy of a clinically suspicious lesion. Electronically Signed By: Perry bass/darnell:01/28/2022 14:15:43 letter sent: Normal Exam ACR BI-RADS Category 1: Negative [id number]
== END ==
PROVIDERS: PCP Internal Medicine; Referring Provider Internal Medicine; Visit Provider Internal Medicine
DX: R92.8 Other abnormal and inconclusive findings on diagnostic imaging of breast (principal)
CPT/HCPCS: 77065; G0279

== ENCOUNTER → 2022-03-23 10:29 | Outpatient (CLI) | payer OTHER, SELFPAY | PROVIDERS: PCP Internal Medicine; Referring Provider Internal Medicine; Visit Provider Internal Medicine | DX: M85.851 Other specified disorders of bone density and structure, right thigh (principal); Z13.820 Encounter for screening for osteoporosis; M85.852 Other specified disorders of bone density and structure, left thigh; Z78.0 Asymptomatic menopausal state; Z92.23 Personal history of estrogen therapy; Z90.710 Acquired absence of both cervix and uterus | CPT/HCPCS: 77080 ==

== ENCOUNTER → 2022-12-30 09:22 | Outpatient (CLI) | payer OTHER, SELFPAY ==
--- NOTE | 2022-12-30 | DI.MG.S_ITS ---
BILATERAL DIGITAL SCREENING MAMMOGRAM 3D/2D WITH CAD: 12/30/2022 CLINICAL: Routine screening. Comparison is made to exams dated: 01/28/2022 mammogram, 12/29/2021 mammogram, and 03/25/2020 mammogram - [facility]. Both breasts are heterogeneously dense, which may obscure small masses (category c / 51-75% glandular tissue). Current study was also evaluated with a Computer Aided Detection (CAD) system. No significant masses, calcifications, or other findings are seen in either breast. There has been no significant interval change. IMPRESSION: NEGATIVE There is no mammographic evidence of malignancy. A 1 year screening mammogram is recommended. Based on the Tyrer Cuzick model (a risk assessment model) the patient's lifetime risk is 4.8% and her 10 year risk is 4.3%. According to the ACR, ACS, and NCCN guidelines, an annual breast MRI exam along with mammogram is recommended if the patient's lifetime risk is 20% or greater. This exam was interpreted at Station ID: [id number]. NOTE: For mammograms, a report in lay terms will be sent to the patient. Approximately 15% of breast malignancies will not be visualized mammographically. In the management of a palpable breast mass, a negative mammogram must not discourage biopsy of a clinically suspicious lesion. Electronically Signed By: Robert wan/darnell:12/30/2022 13:38:42 letter sent: Normal Exam ACR BI-RADS Category 1: Negative [id number]
== END ==
PROVIDERS: PCP Internal Medicine; Referring Provider Internal Medicine; Visit Provider Internal Medicine
DX: Z12.31 Encounter for screening mammogram for malignant neoplasm of breast (principal)
CPT/HCPCS: 77063; 77067

== ENCOUNTER → 2023-02-01 14:43 | Outpatient (CLI) | payer OTHER, SELFPAY ==
--- NOTE | 2023-02-01 | DI.RAD.S_ITS ---
PROCEDURE: XR CERVICAL SPINE 2V OR 3V INDICATIONS: NECK PAIN TECHNIQUE: 3 view(s) of the cervical spine were acquired. COMPARISON: None. FINDINGS: Bones: No fractures or dislocations to the T1 level. There is trace, approximately 1-2 millimeters of C3-C4 and C4-C5 anterolisthesis. The lateral masses of C1 appear intact on the odontoid view. No suspicious bony lesions. Mild C4-C5 C5-C6 degenerative disc disease. Mild facet hypertrophy throughout the cervical spine. Microplate and screws noted in the bilateral mandibular bodies. Soft tissues: No prevertebral soft tissue swelling. IMPRESSION: 1. Multilevel degenerative disc disease. 2. Multilevel facet arthropathy. 3. No fracture. No acute osseous lesion. If symptoms and/or clinical suspicion for pathology persists, evaluation with MRI should be considered for further assessment. Dictated by: Sofai Mckinley MD, PhD on 02/01/2023 at 15:12 Approved by: Sofia Mckinley MD, PhD on 02/01/2023 at 15:13
== END ==
PROVIDERS: PCP Internal Medicine; Referring Provider Internal Medicine; Visit Provider Internal Medicine
DX: M50.321 Other cervical disc degeneration at C4-C5 level (principal); M47.812 Spondylosis without myelopathy or radiculopathy, cervical region
CPT/HCPCS: 72040

== ENCOUNTER → 2023-02-03 14:42 | Outpatient (CLI) | payer OTHER, SELFPAY ==
--- NOTE | 2023-02-03 14:42 | DI.ECHO.S_ITS ---
[facility]---------+ [facility] +---------+ : : [address] : : : : [id number] : : : : Phone: [phone]+ Echocardiogram Report + + :Name: LÓPEZ KRISHNAN Study Date: 02/03/2023 Height: 63 in : :[facility] ReadingLocation: Weight: 115 lb : : Gender: Female BSA: 1.5 m2 : :: 1950 Age: 72 yrs BP: 122/68 mmHg: :Reason For Study: Mitral Valve Prolapse : :Ordering Physician: Reji, : :Og Performed By: Gabrielle Thomson : :Referring: Og Mendoza : + + Interpretation Summary The left ventricle is normal in size. The ejection fraction is estimated to be 55-60%. There is a hypokinesis of basal to mid inferior septum and distal inferior wall. The right ventricle is normal size. The right ventricular systolic function is normal. There is borderline mitral valve prolapse. There is prolapse of the posterior mitral valve leaflet(s). No significant mitral regurgitation or stenosis. There is mild tricuspid regurgitation. The IVC is of normal diameter and collapses greater than 50% with a sniff. This suggests a low right atrial pressure of 3 mm Hg. Procedure: A two-dimensional transthoracic echocardiogram with color flow and Doppler was performed. The study quality was technically difficult. There is no prior echocardiogram noted for this patient. The patient was in normal sinus rhythm during the exam. Left Ventricle: The left ventricle is normal in size. Proximal septal thickening is noted. There is no echo evidence for significant left ventricular outflow tract obstruction. There is no thrombus. The ejection fraction is estimated to be 55-60%. There is a hypokinesis of basal to mid inferior septum and distal inferior wall. Diastolic parameters suggest a relaxation abnormality of the left ventricle, consistent with probable normal filling pressures. Right Ventricle: The right ventricle is normal size. The right ventricular systolic function is normal. Atria: The left atrial size is normal. Right atrial size is normal. There is no Doppler evidence for an interatrial shunt. Mitral Valve: The mitral valve leaflets appear mildly thickened, but open well. There is mild mitral annular calcification. Mitral valve prolapse is present. There is borderline mitral valve prolapse. There is prolapse of the posterior mitral valve leaflet(s). There is no mitral valve stenosis. There is trace mitral regurgitation. Aortic Valve: The aortic valve is not well visualized. The aortic valve opens well. There is no aortic valve stenosis. No aortic regurgitation is present. Tricuspid Valve: The tricuspid valve is not well visualized, but is grossly normal. There is no tricuspid stenosis. There is mild tricuspid regurgitation. Pulmonary artery pressures cannot be estimated because of the lack of a measurable TR jet velocity. Pulmonic Valve: The pulmonic valve is not well seen, but is grossly normal. There is no pulmonic valvular stenosis. There is trace pulmonic regurgitation. Great Vessels: The aortic root is normal size. The ascending aorta is normal in size. Artifacts in aortic arch. Its not well visualized. The pulmonary artery is normal size. The IVC is of normal diameter and collapses greater than 50% with a sniff. This suggests a low right atrial pressure of 3 mm Hg. Pericardium/ Pleura There is no pericardial effusion. There is an anterior echo-free space consistent with a fat pad. There is no pleural effusion. MMode/2D Measurements & Calculations LVIDd: 4.2 cm LVOT diam: 1.9 cm LVIDs: 3.1 cm Ao root diam: 3.4 cm FS: 26.2 % asc Aorta Diam: 2.9 cm IVSd: 0.90 cm LVPWd: 0.80 cm LV edwards. diameter/BSA (cm/m^2): 2.7 LV sys. diameter/BSA (cm/m^2): 2.0 LA A2 area: 14.8 cm2 RA long axis: 5.4 cm LA A4 area: 9.9 cm2 RA area: 12.0 cm2 LA length (vol): 4.9 cm RA vol: 22.5 ml LA vol: 25.4 ml RA : 14.8 ml/m2 LA vol index: 16.6 ml/m2 RVD1 (basal): 2.4 cm LVLs ap4: 6.0 cm LVLd ap2: 6.7 cm TAPSE_phl: 2.1 cm LVLs ap2: 5.9 cm Doppler Measurements & Calculations Ao V2 max: 106.0 cm/sec LVOT Max Deny: 86.7 cm/sec Ao V2 mean: 79.9 cm/sec LV V1 max P.0 mmHg Ao max P.0 mmHg LV V1 VTI: 19.1 cm Ao mean P.0 mmHg ABDI(I,D): 2.1 cm2 Ao V2 VTI: 25.5 cm ABDI(V,D): 2.3 cm2 sev ratio: 0.75 ABDI indexed to BSA (cm^2/m^2): 1.4 MV E max deny: 47.6 cm/sec TR max deny: 204.0 cm/sec MV A max deny: 74.7 cm/sec TR max P.6 mmHg MV E/A: 0.64 PA V2 max: 68.0 cm/sec Med Peak E' Deny: 5.0 cm/sec PA V2 mean: 49.9 cm/sec E/E' med: 9.5 PA mean P.0 mmHg Lat Peak E' Deny: 5.5 cm/sec E/E' lat: 8.6 E/e' average: 9.1 MV dec time: 0.31 sec SV(LVOT): 54.2 ml AV VR_phl: 0.82 ABDI(VTI)/BSA_phl: 1.4 MV P1/2t-pr_phl: 91.0 msec Reading Physician:12:55 PM
== END ==
PROVIDERS: PCP Internal Medicine; Referring Provider Internal Medicine Cardiovascular Disease; Visit Provider Internal Medicine Cardiovascular Disease
DX: I08.1 Rheumatic disorders of both mitral and tricuspid valves (principal)
CPT/HCPCS: 93306

== ENCOUNTER 2023-07-11 07:21 | Day surgery (SDC) | payer OTHER, SELFPAY ==
[2023-07-11 07:44] VITALS: BMI 19.6
[2023-07-11 07:47] VITALS: BP 125/72; PULSE 79; RESP 16; TEMP 36.1; O2SAT 97
[2023-07-11] MEDS: LACTATED RINGERS 1,000 ML 120 ML IV (07:49)
--- NOTE | 2023-07-11 08:00 | P.HP_ITS ---
History of Present Illness History of Present Illness Date Patient Seen: 07/11/23 Time Patient Seen: 08:00 Chief complaint: Colonoscopy Narrative: 73-year-old here for colonoscopy. I reviewed the note by Servando Álvarez. No changes. Personal history of adenomatous colon polyps. Anemia. [facility] Medical History Former smoker Osteoarthritis (~1999) Shoulder pain (~1999) Chronic back pain (~1979) Vertigo (~1991) Retinal detachment (~2015) Diverticular disease (~1997) Asthma (~1994) Hypercholesterolemia Allergies Strabismus, mechanical After cataract of right eye not obscuring vision (~2015) Surgical History Anesthesia History of eye surgery History of thumb surgery History of mandibular surgery (~1997) H/O arthroplasty History of dilatation and curettage Family History Father ALS (amyotrophic lateral sclerosis) Mother Kidney failure Brother COPD (chronic obstructive pulmonary disease) Cirrhosis Sister ALS (amyotrophic lateral sclerosis) Grandfather Stroke Grandfather History of heart disease Grandmother Parkinson's disease Social History household members: none Smoking Status: Former smoker alcohol intake: current Meds Home Medications and Allergies Home Medications Medication Instructions Recorded Confirmed Type cetirizine 10 mg tablet 10 mg PO QDAY ##0 01/18/17 07/11/23 History estradiol 0.5 mg tablet 0.5 mg PO QDAY ##0 01/18/17 07/11/23 History atorvastatin 20 mg tablet 20 mg PO DAILY 08/25/20 07/11/23 History ciclesonide 80 mcg/actuation 2 puff inhalation BID 08/25/20 07/11/23 History aerosol inhaler (Alvesco) progesterone micronized 100 mg 100 mg PO QAM 08/26/20 07/11/23 History capsule meloxicam 15 mg tablet 7.5 mg PO DAILY 07/11/23 07/11/23 History Allergies Allergy/AdvReac Type Severity Reaction Status Date / Time nitrofurantoin Allergy Intermediate n/v Verified 09/11/20 08:44 [From MACROBID] azithromycin Allergy Hives Verified 09/11/20 08:44 [From Zithromax Z-Keaton] Review of Systems Review of Systems ROS: Yes All systems reviewed with the patient and are negative except as otherwise documented Exam Vital Signs (past 8 hours): - 07/11/23 07:47 Temperature 96.9 F L Pulse Rate 79 Respiratory Rate 16 Blood Pressure 125/72 Pulse Oximetry 97 Oxygen Delivery Method Room Air Oxygen Delivery Method Room Air Const General: cooperative HENMT Head: normal to inspection Eyes General: appearance normal, both eyes and all related structures Neck Neck: normal visual inspection Chest Chest: normal inspection of the chest Resp Effort & Inspection: normal respiratory effort Cardio Rate: regular rate GI Inspection: normal to inspection Skin General: no rashes or lesions noted Neuro General: patient alert and patient awake Extrem General: normal to inspection and no pedal edema Psych Appearance: grossly normal Assessment & Plan Assessment & Plan narrative: 73-year-old female with a personal history of colon polyps. There has been and anemia she is heme-negative from below and is not seeing any blood per rectum at the moment. Colonoscopy is pursued today.
--- NOTE | 2023-07-11 08:01 | PM.PREOP ---
Pre-operative Note Interval Note History & Physical reviewed/Exam performed by Physician: Yes Changes to H&P: No ASA Class (for procedural sedation): II
--- NOTE | 2023-07-11 09:07 | PM.OP.COLON ---
Operative Date/Time/Diagnoses Date of procedure: 07/11/23 Time of procedure: 09:08 Pre-op diagnosis: Personal history of colon polyps. Anemia. Post-op diagnosis: same Procedure & Clinicians Study performed: Colonoscopy Same procedure as scheduled: Yes Indications: Personal history of colon polyps. Anemia. Surgeon: Paulie Chaidez Procedure Notes SCOAP/Timeout: Done Procedure in detail: After the risks and benefits were explained, written and verbal informed consent was obtained. The patient was brought into the procedure room and placed into the left lateral decubitus position. Please see anesthesia note for sedation details. Digital rectal examination was accomplished. The scope was introduced into the patient and advanced under direct visualization to the cecum as identified by the appendiceal orifice and ileocecal valve. The scope was slowly withdrawn to carefully examine the mucosa for any defects or lesions. Comprehensive imaging was accomplished throughout the rectum including the dentate line. The colon was decompressed, the scope was then removed from the patient who tolerated the procedure well. Pediatric colonoscope Bowel prep adequate Scope withdrawal time: 7 minutes Sedation minutes: 15 Specimen(s): none sent Complications: none Impression: Grade 3 nonbleeding nonthrombosed hemorrhoids were noted. The patient had moderate diverticulosis in the left colon and a few scattered diverticula in the right. No significant polyps mass lesions or inflammatory features identified throughout. Endoscopic diagnosis 1. Grade 3 hemorrhoids 2. Diverticulosis Post-procedure Plan for aftercare: 1. Consider repeat colonoscopy in 5 years in light of prior history of adenomatous colon polyps. 2. Otherwise follow-up in primary care as before. Disposition: PACU
[2023-07-11 09:09] VITALS: BP 93/49; PULSE 67; RESP 16; TEMP 36; O2SAT 98
[2023-07-11 09:14] VITALS: BP 102/63; PULSE 64; RESP 13; O2SAT 98
[2023-07-11 09:19] VITALS: BP 102/50; PULSE 65; RESP 15; TEMP 36.8; O2SAT 98
[2023-07-11 09:24] VITALS: BP 110/48; PULSE 63; RESP 17; O2SAT 99
== END 2023-07-11 09:33 | disposition home or self-care (01) ==
PROVIDERS: PCP Internal Medicine; Referring Provider Internal Medicine Gastroenterology; Visit Provider Internal Medicine Gastroenterology
PROC: 0DJD8ZZ Inspection of Lower Intestinal Tract, Via Natural or Artificial Opening Endoscopic (ICD-10-PCS; CPT 45378; principal; 2023-07-11 08:30)
DX: Z12.11 Encounter for screening for malignant neoplasm of colon (principal); D64.9 Anemia, unspecified; Z86.010 Personal history of colon polyps; K57.30 Diverticulosis of large intestine without perforation or abscess without bleeding; K64.2 Third degree hemorrhoids
CPT/HCPCS: 45378; J2704

== ENCOUNTER → 2023-10-01 15:05 | Outpatient (CLI) | payer OTHER, SELFPAY ==
--- NOTE | 2023-10-01 | DI.MRI.S_ITS ---
PROCEDURE: MR CERVICAL SPINE WO CON INDICATIONS: NECK PAIN TECHNIQUE: Noncontrast sagittal T1 spin echo and T2 fast spin echo, sagittal STIR, foraminal oblique sagittal T2 fast spin echo, and axial gradient echo or T2 fast spin echo through the cervical spine. COMPARISON: None. FINDINGS: Image quality: Diagnostic. Alignment and Curvature: There is normal bony alignment. Bone Marrow: Marrow demonstrates normal overall signal. No acute compression fracture. Craniocervical junction is intact. Spinal Cord: Visualized spinal cord has normal size and signal. No cerebellar tonsillar herniation. Paraspinous Soft Tissues: No paravertebral masses. Prevertebral soft tissues are normal in thickness. C2-C3: Mild bilateral facet arthropathy. No significant neuroforaminal or spinal canal stenosis. C3-C4: Mild degenerative endplate changes. Mild bilateral facet arthropathy. Broad-based posterior disc osteophyte complex. Mild right and minimal left bilateral neuroforaminal stenosis. No significant spinal canal stenosis. C4-C5: Broad-based posterior disc osteophyte complex. Mild bilateral facet arthropathy. Mild left neuroforaminal stenosis. No significant right neuroforaminal stenosis. No significant spinal canal stenosis. C5-C6: Mild bilateral facet arthropathy. Mild degenerative endplate changes. Posterior disc osteophyte complex. No significant neuroforaminal or spinal canal stenosis. C6-C7: No significant neuroforaminal or spinal canal stenosis. C7-T1: No significant neuroforaminal or spinal canal stenosis. IMPRESSION: Cervical spine without acute abnormalities. Mild multilevel, multifactorial cervical spondylosis as detailed above by vertebral body level. Dictated by: Esau Mattson M.D. on 10/03/2023 at 11:49 Approved by: Esau Mattson M.D. on 10/03/2023 at 12:07
== END ==
LOC: MRI 15:05
PROVIDERS: PCP Internal Medicine; Referring Provider Internal Medicine; Visit Provider Internal Medicine
DX: M47.812 Spondylosis without myelopathy or radiculopathy, cervical region (principal); M54.2 Cervicalgia
CPT/HCPCS: 72141

== ENCOUNTER → 2024-01-03 14:26 | Outpatient (CLI) | payer OTHER, SELFPAY ==
--- NOTE | 2024-01-03 14:27 | DI.MG.S_ITS ---
BILATERAL DIGITAL SCREENING MAMMOGRAM 3D/2D WITH CAD: 01/03/2024 CLINICAL: Routine screening. Comparison is made to exams dated: 12/30/2022 mammogram, 12/29/2021 mammogram, and 03/25/2020 mammogram - [facility]. Both breasts are heterogeneously dense, which may obscure small masses (category c / 51-75% glandular tissue). Current study was also evaluated with a Computer Aided Detection (CAD) system. There are benign calcifications in both breasts. No significant masses, calcifications, or other findings are seen in either breast. There has been no significant interval change. IMPRESSION: BENIGN There is no mammographic evidence of malignancy. A 1 year screening mammogram is recommended. Based on the Tyrer Cuzick model (a risk assessment model) the patient's lifetime risk is 4.4% and her 10 year risk is 4.4%. According to the ACR, ACS, and NCCN guidelines, an annual breast MRI exam along with mammogram is recommended if the patient's lifetime risk is 20% or greater. This exam was interpreted at Station ID: [id number]. NOTE: For mammograms, a report in lay terms will be sent to the patient. Approximately 15% of breast malignancies will not be visualized mammographically. In the management of a palpable breast mass, a negative mammogram must not discourage biopsy of a clinically suspicious lesion. Electronically Signed By: Eve west/darnell:01/03/2024 16:51:56 letter sent: Normal Exam ACR BI-RADS Category 2: Benign Finding(s) 3342F
== END ==
PROVIDERS: Family Provider Internal Medicine; PCP Internal Medicine; Referring Provider Internal Medicine; Visit Provider Internal Medicine
DX: Z12.31 Encounter for screening mammogram for malignant neoplasm of breast (principal); R92.333 Mammographic heterogeneous density, bilateral breasts
CPT/HCPCS: 77063; 77067

== ENCOUNTER → 2024-01-12 10:35 | Outpatient (CLI) | payer OTHER, SELFPAY | LOC: PHYS 10:36 | PROVIDERS: Family Provider Internal Medicine; PCP Internal Medicine; Referring Provider Physical Medicine & Rehabilitation; Visit Provider Physical Medicine & Rehabilitation | DX: M54.12 Radiculopathy, cervical region (principal) | CPT/HCPCS: 95886; 95913 ==

== ENCOUNTER 2024-01-24 08:36 | Outpatient (CLI) | payer OTHER, SELFPAY ==
[2024-01-24 09:10] VITALS: BP 105/58; PULSE 74; RESP 14; TEMP 36.5; O2SAT 97
--- NOTE | 2024-01-24 09:15 | DI.RAD.S_ITS ---
PROCEDURE: PAIN C/T INTERLAMINAR INJECT INDICATIONS: C6-7 translaminar FLAVIO COMPARISON: None. FINDINGS: Fluoroscopic spot filming was performed to verify placement of spinal needles at the C6-7 level(s), as labeled on the films. Appropriate location(s) of the needle tip(s) was confirmed by injection of iodinated contrast. IMPRESSION: Fluoro guidance was provided intraoperatively for C6-7 translaminar FLAVIO performed by ordering physician. Dictated by: Lavell Soto M.D. on 01/24/2024 at 11:29 Approved by: Lavell Soto M.D. on 01/24/2024 at 11:29
[2024-01-24 09:42] VITALS: BP 122/56; PULSE 72; RESP 10; O2SAT 100
[2024-01-24 09:45] VITALS: BP 118/56; PULSE 71; RESP 11; O2SAT 100
[2024-01-24 09:50] VITALS: BP 125/60; PULSE 71; RESP 11; O2SAT 100
[2024-01-24] MEDS: DEXAMETHASONE 10 MG/ML VIAL 20 MG INJ (09:52)
[2024-01-24] MEDS: BUPIVACAINE 0.25% (PF) VIAL 2 ML INJ (09:52)
[2024-01-24] MEDS: iopamidoL 15 ML VIAL 3 ML INJ (09:53)
[2024-01-24 09:55] VITALS: BP 121/62; PULSE 69; RESP 12; O2SAT 100
[2024-01-24 10:00] VITALS: BP 110/53; PULSE 65; RESP 14; O2SAT 99
--- NOTE | 2024-01-24 10:01 | PM.PROC.IR.1 ---
Date/Time/Diagnoses Date of procedure: 01/24/24 Time of procedure: 10:01 Pre-procedure diagnosis: 1. CERVICAL STENOSIS, 2. CERVICAL HNP WITH UPPER EXTREMITY RADICULAR FEATURES Post-procedure diagnosis: same Procedure Notes Procedure: 1. FLUORSCOPICALLY GUIDED CONTRAST CONTROLLED INTERLAMINAR EPIDURAL STEROID INJECTION - C6/7 TL FLAVIO Indications: Deidra is referred by GLEN Myers for treatment of Cervical HNP with Upper Extremity Paresthesias. Physician: Flaquito Cardenas Total Fluoroscopy time (seconds): 24 Total sedation minutes: 0 Complications: none Procedure in detail & Post-procedure care: FINDINGS Cervical Stenosis due to disc deterioration and nerve root irritation and nerve root irritation DESCRIPTION OF PROCEDURE Fluoroscopically guided, contrast-controlled C6/7 translaminar epidural steroid injection with conscious sedation. Following review of allergy and review of potential side effects and complications, including, but not necessarily limited to, infection, allergic reaction, local tissue breakdown, temporary as well as permanent nerve injury, stroke, paralysis, and possible , the patient indicated that patient understood and agreed to proceed. An informed consent document was signed by the patient, witnessed by a nurse, and placed in the patient's chart. Additionally, other treatment options including modalities, medications, and physical therapy were reviewed with the patient. After review of previous anaesthesic history and IV conscious sedation the patient was deemed safe to proceed with today?s procedure with IV conscious sedation as ASA class II designation. Safety time-out was performed to confirm patient ID, procedure to be performed and site of procedure. IV sedation was not administered by the RN after DO order, titrated to patient comfort during the course of the procedure while the patient remained responsive to all verbal commands. In the prone position, following sterile prep and drape of the cervical region, the C6/7 translaminar space was identified fluoroscopically. The skin was anesthetized via a 25-gauge 1.5-inch needle with 1% lidocaine solution. At this point, a 25-gauge, 2.5-inch short bevel spinal needle was atraumatically introduced and advanced under fluoroscopic guidance into epidural space at the C6/7 translaminar space. Depth was confirmed on lateral view. Radiological data, including multiple fluoroscopic views of the cervical spine, reveal a spinal needle at the C6/7 translaminar space. Lateral views then show placement of the needle in the epidural space. Subsequent views show contrast material flowing superiorly and inferiorly in the epidural space. DSA fluoroscopy with live contrast injection, once again, confirmed no vascular or intrathecal uptake. At this point, using loss of resistance technique with saline and air, the epidural space was entered. Following negative aspiration, injection of approximately 1.5 cc of Isovue-200 with live fluoroscopy in the AP view confirmed epidural flow in the epidural space without vascular or intrathecal uptake observed. Subsequently, a test dose of 1 cc of 1% lidocaine solution was injected and patient was observed for two minutes without signs or symptoms of complications, including abdominal pain, shortness of breath, bilateral upper or lower extremity weakness, nausea and vomiting, prior to steroid injection. At this point, 2cc or 20mg of dexamethasone was then injected without incident. The patient tolerated the procedure well without signs or symptoms of complications prior to being transferred to the recovery area for further monitoring, The patient was then transferred to the recovery area where they were observed for an appropriate period of time after the injection. The patient reported a VAS score of 6 prior to the procedure and a post-procedure VAS of 0. POST OP INSTRUCTIONS The patient was provided a Pain Log to continue to record their response to the target-specific procedure prior to follow-up visit with the referring provider. Additionally, specific post-injection care instructions and a contact number to our office were provided if concerns arise regarding possible complications associated with the procedure are suspected.
--- NOTE | 2024-01-25 14:37 | PC.NURSE ---
1437 Patient post-procedural call made. Patient states that he is doing well and has no questions or concerns at this time. Patient advised to call the clinic if anything changes or if he has any questions or concerns.
== END 2024-01-24 10:07 | disposition home or self-care (01) ==
PROVIDERS: Family Provider Internal Medicine; PCP Internal Medicine; Referring Provider Physical Medicine & Rehabilitation; Visit Provider Physical Medicine & Rehabilitation
DX: M48.02 Spinal stenosis, cervical region (principal); M50.123 Cervical disc disorder at C6-C7 level with radiculopathy
CPT/HCPCS: 62321; J1100; J3490

== ENCOUNTER → 2024-03-26 10:11 | Outpatient (CLI) | payer OTHER, SELFPAY ==
--- NOTE | 2024-03-26 10:12 | DI.RAD.S_ITS ---
PROCEDURE: XR DEXA AXIAL SKELETON INDICATIONS: POSTMENOPAUSAL/HORMONE REPLACEMENT THERAPY COMPARISON: [facility], [place], XR DEXA AXIAL SKELETON, 03/23/2022, 10:52. FINDINGS: Lumbar Spine: Bone mineral density 1.068 g/cm2, T score 0.2. Left Hip: Bone mineral density 0.798 g/cm2, T score -1.2. Left Femoral Neck: Bone mineral density 0.774 g/cm2, T score -0.7. Right Hip: Bone mineral density 0.806 g/cm2, T score -1.1. Right Femoral Neck: Bone mineral density 0.761 g/cm2, T score -0.8. Fracture Risk Calculation (when applicable): 10-year fracture risk of a major osteoporotic fracture 8.3 and of a hip fracture 1.3. (T score greater or equal to -1.0 to: NORMAL) (T score from -1.1 to -2.4: OSTEOPENIA) (T score less than or equal to -2.5: OSTEOPOROSIS) IMPRESSION: Osteopenia. Follow-up guidelines as follows: Osteoporosis: Consider a repeat DEXA and Vertebral Fracture Assessment (VFA) exam in 2 years or sooner if medically necessary, to reassess this patient's status. Osteopenia: Consider a repeat DEXA in 2-3 years to reassess this patient's status, or if there is a new clinical indication. Normal: Consider a repeat DEXA in 5 years or sooner, or if there is a new clinical indication. All treatment decisions require clinical judgment and consideration of individual patient factors, including patient preferences, comorbidities, previous drug use, risk factors not captured in the FRAX model (e.g., frailty, falls, vitamin D deficiency, increased bone turnover, interval significant decline in bone density ) and possible under- or over-estimation of fracture risk by FRAX. In addition, the NOF Guide recommends that FDA-approved medical therapies be considered in postmenopausal women and men age >= 50 years with a: * Hip or vertebral (clinical or morphometric) fracture * T-score of <=-2.5 at the spine or hip * Ten-year fracture probability by FRAX of >= 3% for hip fracture or >=20% for major osteoporotic fracture. People with diagnosed cases of osteoporosis or at high risk for fracture should have regular bone mineral density tests. For patients eligible for Medicare, routine testing is allowed once every 2 years. The testing frequency can be increased to one year for patients who have rapidly progressing disease, those who are receiving or discontinuing medical therapy to restore bone mass, or have additional risk factors. Dictated by: Randall Joyner M.D. on 03/26/2024 at 17:07 Approved by: Randall Joyner M.D. on 03/26/2024 at 17:08
== END ==
LOC: RAD 10:11
PROVIDERS: Family Provider Internal Medicine; PCP Internal Medicine; Referring Provider Internal Medicine; Visit Provider Internal Medicine
DX: M85.89 Other specified disorders of bone density and structure, multiple sites (principal); Z78.0 Asymptomatic menopausal state; Z79.890 Hormone replacement therapy
CPT/HCPCS: 77080

== ENCOUNTER 2024-04-17 07:34 | Outpatient (CLI) | payer OTHER, SELFPAY ==
[2024-04-17] VITALS (9 sets, daily range): BP systolic 86–137; BP diastolic 53–64; PULSE 61–76; RESP 11–18; TEMP 36.2; O2SAT 96–99
--- NOTE | 2024-04-17 08:00 | DI.RAD.S_ITS ---
PROCEDURE: PAIN C/T INTERLAMINAR INJECT INDICATIONS: CERVICAL STENOSIS COMPARISON: [facility], , PAIN C/T INTERLAMINAR INJECT, 01/24/2024, 9:47. FINDINGS: Fluoroscopic spot filming was performed to verify placement of spinal needles at the C6-C7 level(s), as labeled on the films. Appropriate location(s) of the needle tip(s) was confirmed by injection of iodinated contrast. IMPRESSION: C6-C7 injections, please see operative note for full details. Dictated by: Robert Ramos M.D. on 04/17/2024 at 11:56 Approved by: Robert Ramos M.D. on 04/17/2024 at 11:56
[2024-04-17] MEDS: SODIUM CHLORIDE 0.9% 500 ML 1000 ML IV (08:20)
[2024-04-17] MEDS: DEXAMETHASONE 10 MG/ML VIAL 20 MG INJ (08:24)
[2024-04-17] MEDS: BUPIVACAINE 0.25% (PF) VIAL 2 ML INJ (08:24)
[2024-04-17] MEDS: iopamidoL 15 ML VIAL 3 ML INJ (08:25)
--- NOTE | 2024-04-17 08:37 | PM.PROC.IR.1 ---
Date/Time/Diagnoses Date of procedure: 04/17/24 Time of procedure: 08:37 Pre-procedure diagnosis: 1. CERVICAL STENOSIS, 2. CERVICAL HNP WITH UPPER EXTREMITY RADICULAR FEATURES Post-procedure diagnosis: same Procedure Notes Procedure: 1. FLUORSCOPICALLY GUIDED CONTRAST CONTROLLED INTERLAMINAR EPIDURAL STEROID INJECTION - C6/7 TL FLAVIO Indications: Deidra is referred by GLEN Carmona for treatment of Cervical HNP with Upper Extremity Paresthesias. Physician: Flaquito Cardenas Total Fluoroscopy time (seconds): 26 Total sedation minutes: 0 Complications: none Procedure in detail & Post-procedure care: FINDINGS Cervical Stenosis due to disc deterioration and nerve root irritation and nerve root irritation DESCRIPTION OF PROCEDURE Fluoroscopically guided, contrast-controlled C6/7 translaminar epidural steroid injection with conscious sedation. Following review of allergy and review of potential side effects and complications, including, but not necessarily limited to, infection, allergic reaction, local tissue breakdown, temporary as well as permanent nerve injury, stroke, paralysis, and possible , the patient indicated that patient understood and agreed to proceed. An informed consent document was signed by the patient, witnessed by a nurse, and placed in the patient's chart. Additionally, other treatment options including modalities, medications, and physical therapy were reviewed with the patient. After review of previous anaesthesic history and IV conscious sedation the patient was deemed safe to proceed with today?s procedure with IV conscious sedation as ASA class II designation. Safety time-out was performed to confirm patient ID, procedure to be performed and site of procedure. IV sedation was not administered by the RN after DO order, titrated to patient comfort during the course of the procedure while the patient remained responsive to all verbal commands. In the prone position, following sterile prep and drape of the cervical region, the C6/7 translaminar space was identified fluoroscopically. The skin was anesthetized via a 25-gauge 1.5-inch needle with 1% lidocaine solution. At this point, a 25-gauge, 2.5-inch short bevel spinal needle was atraumatically introduced and advanced under fluoroscopic guidance into epidural space at the C6/7 translaminar space. Depth was confirmed on lateral view. Radiological data, including multiple fluoroscopic views of the cervical spine, reveal a spinal needle at the C6/7 translaminar space. Lateral views then show placement of the needle in the epidural space. Subsequent views show contrast material flowing superiorly and inferiorly in the epidural space. DSA fluoroscopy with live contrast injection, once again, confirmed no vascular or intrathecal uptake. At this point, using loss of resistance technique with saline and air, the epidural space was entered. Following negative aspiration, injection of approximately 1.5 cc of Isovue-200 with live fluoroscopy in the AP view confirmed epidural flow in the epidural space without vascular or intrathecal uptake observed. Subsequently, a test dose of 1 cc of 1% lidocaine solution was injected and patient was observed for two minutes without signs or symptoms of complications, including abdominal pain, shortness of breath, bilateral upper or lower extremity weakness, nausea and vomiting, prior to steroid injection. At this point, 2cc or 20mg of dexamethasone was then injected without incident. The patient tolerated the procedure well without signs or symptoms of complications prior to being transferred to the recovery area for further monitoring, The patient was then transferred to the recovery area where they were observed for an appropriate period of time after the injection. The patient reported a VAS score of 7 prior to the procedure and a post-procedure VAS of 0. POST OP INSTRUCTIONS The patient was provided a Pain Log to continue to record their response to the target-specific procedure prior to follow-up visit with the referring provider. Additionally, specific post-injection care instructions and a contact number to our office were provided if concerns arise regarding possible complications associated with the procedure are suspected.
--- NOTE | 2024-04-17 08:49 | PC.NURSE ---
Verbal order from Dr. Cardenas pre-procedure to start a bolus of 500mL Normal saline due to patient's hypotension on admit.
== END 2024-04-17 08:55 | disposition home or self-care (01) ==
LOC: RAD 07:34
PROVIDERS: Family Provider Internal Medicine; PCP Internal Medicine; Referring Provider Physical Medicine & Rehabilitation; Visit Provider Physical Medicine & Rehabilitation
DX: M48.02 Spinal stenosis, cervical region (principal); M50.123 Cervical disc disorder at C6-C7 level with radiculopathy
CPT/HCPCS: 62321; J1100; J3490

== ENCOUNTER → 2024-09-06 09:09 | Outpatient (CLI) | payer OTHER, SELFPAY ==
--- NOTE | 2024-09-06 09:12 | DI.MRI.S_ITS ---
PROCEDURE: MR WRIST LT WO CON INDICATIONS: LT WRIST PAIN TECHNIQUE: Noncontrast coronal proton density fast spin echo and T2 fast spin echo with fat saturation; coronal 3-D gradient echo, axial T1 spin echo and T2 fast spin echo with fat saturation, sagittal T1 spin echo through the wrist. COMPARISON: None. FINDINGS: Image quality: Fair. Bones: Subchondral cyst formation is present at the articulating surfaces of the lunocapitate articulation (4/5). The bone marrow signal is otherwise normal. There is no evidence of fracture or carpal bone osteonecrosis. There is a type 2 lunate. 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 There is no significant fluid within the distal radioulnar joint, radiocarpal joint, or midcarpal space. There is mildly abnormal dorsal offset of the ulna with respect to the distal radius at distal radioulnar joint, which may be secondary to prone positioning (8/20). Intrinsic Ligaments: The scapholunate and lunotriquetral intervals are normal. The intrinsic scapholunate and lunotriquetral ligaments are normal. Extrinsic Ligaments: The extrinsic ligaments are normal. Triangular Fibrocartilage Complex: The triangular fibrocartilage disc proper, distal dorsal and volar radioulnar ligaments, ulnar collateral ligament/meniscal homologue, ulnotriquetral, and ulnolunate ligaments are normal. There is a small amount of fluid in the prestyloid recess (4/6). Tendons: The flexor and extensor tendons are normal. Nerves: There is mild thickening and intermediate signal the ulnar nerve at the distal radioulnar joint (9/21). The median nerve is normal in size and signal. Other: No other acute abnormality. IMPRESSION: 1. Possible ulnar neuritis; please correlate with symptoms in the corresponding dermatomal distribution. 2. Mild triscaphe, 1st CMC, and lunocapitate osteoarthritis. 3. Positioning artifact versus possible distal radioulnar joint instability. Please correlate for joint laxity. Dictated by: Braden Montesinos M.D. on 09/07/2024 at 11:01 Approved by: Braden Montesinos M.D. on 09/07/2024 at 11:45
== END ==
PROVIDERS: Family Provider Internal Medicine; PCP Internal Medicine; Referring Provider Orthopaedic Surgery; Visit Provider Orthopaedic Surgery
DX: G56.22 Lesion of ulnar nerve, left upper limb (principal); G56.02 Carpal tunnel syndrome, left upper limb; M25.532 Pain in left wrist; M19.032 Primary osteoarthritis, left wrist; M18.12 Unilateral primary osteoarthritis of first carpometacarpal joint, left hand
CPT/HCPCS: 73221

== ENCOUNTER 2024-09-18 08:41 | Outpatient (CLI) | payer OTHER, SELFPAY ==
[2024-09-18] VITALS (8 sets, daily range): BP systolic 100–118; BP diastolic 53–59; PULSE 67–74; RESP 14–18; TEMP 35.8; O2SAT 96–100
--- NOTE | 2024-09-18 08:42 | DI.RAD.S_ITS ---
PROCEDURE: PAIN C/T FACET INJ/BLK 1ST L INDICATIONS: Left C4, C5 and C6 MBB LA COMPARISON: None. FINDINGS/IMPRESSION: Fluoroscopic spot filming was performed to verify placement of spinal needles at the left C4, C5 and C6 level(s), as labeled on the films. Appropriate location(s) of the needle tip(s) was confirmed by injection of iodinated contrast. Dictated by: Sofia Mckinley MD, PhD on 09/18/2024 at 11:15 Approved by: Sofia Mckinley MD, PhD on 09/18/2024 at 11:15
[2024-09-18] MEDS: iopamidoL 15 ML VIAL 3 ML INJ (09:47)
[2024-09-18] MEDS: BUPIVACAINE 0.5% (PF) 10 ML VIAL 2 ML INJ (09:47)
--- NOTE | 2024-09-18 09:58 | P.PCN_ITS ---
Date/Time/Diagnoses Date of procedure: 09/18/24 Time of procedure: 09:58 Pre-procedure diagnosis: 1. FACET ARTHROPATHY 2. AXIAL NECK PAIN Post-procedure diagnosis: same Procedure Notes Procedure: 1. FLUOROSCOPICALLY GUIDED, CONTRAST-CONTROLLED LEFT C4, C5 and C6 MBB, LA. Indications: Deidra is referred by GLEN Carmona for treatment of Axial Neck Pain Physician: Flaquito Cardenas Total Fluoroscopy time (seconds): 8 Total sedation minutes: 0 Complications: none Procedure in detail & Post-procedure care: DESCRIPTION OF PROCEDURE Fluoroscopically guided, contrast-controlled left C4, C5 and C6 medial branch blocks LA. Following review of allergy and review of potential side effects and complications, including, but not necessarily limited to, infection, allergic reaction, local tissue breakdown, stroke, temporary or permanent nerve injury and paralysis, the patient indicated that the patient understood and agreed to proceed. An informed consent document was signed by the patient, witnessed by a nurse, and placed in the patient's chart. Additionally, other treatment options including medications, modalities, and physical therapy were reviewed with the patient. After review of previous anaesthesic history and IV conscious sedation the patient was deemed safe to proceed with today?s procedure with IV conscious sedation as ASA class II designation. Safety time-out was performed to confirm patient ID, procedure to be performed and site of procedure. IV sedation was not administered by the RN after DO order, titrated to patient comfort during the course of the procedure while the patient remained responsive to all verbal commands In the prone position, following sterile prep and drape of the cervical spine region, the posterior aspect of the left C4, C5 and C6 medial [id number] were identified fluoroscopically. The skin was anesthetized via a 25-gauge 1.5-inch needle with 1% lidocaine solution into the corresponding medial branchs. At this point, a 25-gauge 2.5-inch spinal needle was atraumatically introduced and advanced under fluoroscopic guidance into the corresponding locations. Following negative aspiration, injections of approximately 0.1cc of Isovue 200 confirmed placement without vascular uptake. At this point, a total of 0.5cc of 0.25% bupivicaine solution was injected without complication into each of the corresponding medial branches. The procedure tolerated the procedure well without signs or symptoms of complications prior to transfer to the recovery area continued monitoring without incident. The patient was then transferred to the recovery area where they were observed for an appropriate period of time after the injection. The patient reported a VAS score of 7 prior to the procedure and a post- procedure VAS of 0. POST OP INSTRUCTIONS They were provided a Pain Log to continue to record their response to the target-specific procedure prior to their follow-up visit with their referring physician. Additionally, specific post-injection care instructions and a contact number to our office were provided if concerns arise regarding possible complications associated with the procedure are suspected.
== END 2024-09-18 10:10 | disposition home or self-care (01) ==
LOC: RAD 08:41
PROVIDERS: Family Provider Internal Medicine; PCP Internal Medicine; Referring Provider Physical Medicine & Rehabilitation; Visit Provider Physical Medicine & Rehabilitation
DX: M47.812 Spondylosis without myelopathy or radiculopathy, cervical region (principal)
CPT/HCPCS: 64490; 64491

== ENCOUNTER → 2024-10-31 13:53 | Outpatient (CLI) | payer OTHER, SELFPAY ==
--- NOTE | 2024-10-31 13:54 | DI.RAD.S_ITS ---
PROCEDURE: XR CERVICAL SPINE 4V OR 5V INDICATIONS: NECK PAIN TECHNIQUE: 4 views of the cervical spine acquired. COMPARISON: [facility], CR, XR CERVICAL SPINE 2V OR 3V, 02/01/2023, 14:44. FINDINGS: Diffuse osseous demineralization. The vertebral body heights are preserved. Mildly exaggerated cervical lordosis. The intervertebral disc heights are preserved. Mild multilevel facet and uncinate arthropathy. No significant foraminal narrowing. The odontoid view is suboptimal for evaluation, although the C1 and C2 lateral masses are in symmetric alignment with the dens. No prevertebral soft tissue edema. Malleable plate along the right body of the mandible. IMPRESSION: Mild multilevel facet and uncinate arthropathy. Dictated by: Braden Montesinos M.D. on 10/31/2024 at 14:41 Approved by: Braden Montesinos M.D. on 10/31/2024 at 14:43
== END ==
PROVIDERS: Family Provider Internal Medicine; PCP Registered Nurse; Referring Provider Physical Medicine & Rehabilitation; Visit Provider Physical Medicine & Rehabilitation
DX: M47.22 Other spondylosis with radiculopathy, cervical region (principal)
CPT/HCPCS: 72050

== ENCOUNTER → 2024-12-03 09:07 | Outpatient (CLI) | payer OTHER, SELFPAY ==
--- NOTE | 2024-12-03 09:10 | DI.MRI.S_ITS ---
PROCEDURE: MR KNEE RT WO CON INDICATIONS: RIGHT KNEE PAIN TECHNIQUE: Noncontrast sagittal PD fast spin echo and T2 fast spin echo with fat saturation, sagittal 3-D FLASH with fat saturation; coronal T1 spin echo and PD fast spin echo with fat saturation, and axial PD fast spin echo with fat saturation through the knee. COMPARISON: [facility], MR, MR KNEE RT WO CON, 07/22/2021, 13:35. FINDINGS: Image quality: Excellent. Menisci: Oblique tear involving posterior horn of medial meniscus is seen extending to inferior articulating surface. The lateral meniscus is intact. Cruciate ligaments: The anterior cruciate ligament appears thickened near its femoral insertion. The posterior cruciate ligament is intact. Medial structures: The medial collateral ligament appears intact. Visualized portions of the pes anserinus tendons appear normal. No abnormal bursal fluid. Lateral structures: The lateral collateral ligament, long and short heads of the biceps femoris tendon appear intact. The popliteus tendon appears normal. Iliotibial band appears normal. Anterior structures: Mild distal quadriceps tendinosis at its superior patellar insertion is seen. The patellar tendon is intact. Patellar alignment is normal. Bones and cartilage: No bone marrow contusions or fractures. 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 There is moderate to high-grade chondromalacia involving lateral facet of patella cartilage near apex. Joint space: There is small knee joint fluid. Small Álvarez's cyst measures 2 x 1.8 x 4.9 cm in size. Normal appearing synovial plicae are incidentally noted. IMPRESSION: 1. Oblique tear involving posterior horn of medial meniscus extending to inferior articulating surface. No lateral meniscal tear. 2. Low to moderate grade sprain/intrasubstance partial-thickness tear involving proximal to mid ACL. No ACL rupture. The PCL is intact. 3. Distal quadriceps tendinosis. Patellar tendon is intact. 4. 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 No fracture or dislocation. Small joint effusion and a small popliteal cyst as above. No loose bodies. Dictated by: Lavell Soto M.D. on 12/03/2024 at 15:02 Approved by: Lavell Soto M.D. on 12/03/2024 at 15:05
== END ==
LOC: MRI 09:08
PROVIDERS: Family Provider Internal Medicine; PCP Registered Nurse; Referring Provider Orthopaedic Surgery; Visit Provider Orthopaedic Surgery
DX: S83.241A Other tear of medial meniscus, current injury, right knee, initial encounter (principal); S83.511A Sprain of anterior cruciate ligament of right knee, initial encounter; M17.11 Unilateral primary osteoarthritis, right knee; M22.41 Chondromalacia patellae, right knee; M25.461 Effusion, right knee; M71.21 Synovial cyst of popliteal space [Baker], right knee; M25.561 Pain in right knee
CPT/HCPCS: 73721

== ENCOUNTER → 2025-01-03 10:56 | Outpatient (CLI) | payer OTHER, SELFPAY ==
--- NOTE | 2025-01-03 10:57 | DI.MG.S_ITS ---
MM screening mammo BI: 01/03/2025. BI-RADS: 2 CLINICAL: 74-year old female for bilateral screening mammogram. Tyrer-Cuzick lifetime risk of 2.6%. No personal or first-degree family history of breast cancer. PRIOR EXAMS 01/03/2024, 12/30/2022, 01/28/2022, 12/29/2021, 03/25/2020, 03/23/2019, 03/01/2018. MAMMOGRAPHY TECHNIQUE: 2D and 3D (tomosynthesis) digital mammographic views obtained, with additional images as needed for full coverage. Current study was also evaluated with a Computer Aided Detection (CAD) system. DENSITY C. The breasts are heterogeneously dense, which may obscure small masses. MAMMOGRAPHY FINDINGS Bilateral: Benign-appearing calcifications noted. There are no suspicious masses, calcifications, or other findings in the breast. IMPRESSION: * No evidence of malignancy with benign findings. RECOMMENDATIONS Bilateral * Annual screening mammography. OVERALL ASSESSMENT CATEGORY BI-RADS-2: Benign. The [employer] recommends annual screening mammography beginning at age 40 for women with average risk of breast cancer. ELECTRONICALLY SIGNED: Esau Mattson M.D. on 01/03/2025 at 05:56:33 PM PT Interpreting Station ID: [id number]
== END ==
PROVIDERS: Family Provider Internal Medicine; PCP Registered Nurse; Referring Provider Registered Nurse; Visit Provider Registered Nurse
DX: Z12.31 Encounter for screening mammogram for malignant neoplasm of breast (principal); R92.333 Mammographic heterogeneous density, bilateral breasts
CPT/HCPCS: 77063; 77067

== ENCOUNTER → 2025-01-07 09:44 | Outpatient (CLI) | payer OTHER, SELFPAY ==
--- NOTE | 2025-01-07 09:45 | DI.RAD.S_ITS ---
PROCEDURE: XR LUMBAR SPINE MIN 4V INDICATIONS: LBP with left LE symptoms TECHNIQUE: 5 views of the lumbar spine were acquired, including bilateral oblique views. COMPARISON: None. FINDINGS: Bones: 5 nonrib-bearing vertebrae are present. There is normal bony alignment. No vertebral body compression fractures. No suspicious bony lesions. Convex right thoracolumbar scoliosis. Disc space narrowing and hypertrophic facet joints throughout the exam particularly lower lumbar spine. Grade 1 degenerative anterior spondylolisthesis at L4-5 Soft tissues: Overlying bowel gas pattern is normal. No suspicious soft tissue calcifications. Oblique images: No pars defects. IMPRESSION: Degenerative disc disease and arthropathy particularly lower lumbar spine associated with grade 1 degenerative anterior spondylolisthesis L4-5 Approved by: Derrick Cárdenas M.D. on 01/07/2025 at 17:31
--- NOTE | 2025-01-07 09:45 | DI.RAD.S_ITS ---
PROCEDURE: XR KNEE RT 3V INDICATIONS: djd TECHNIQUE: 3 views of the knee were acquired. COMPARISON: [facility], CR, XR KNEE RT 1TO2V, 05/06/2021, 8:01. FINDINGS: Bones: No fractures or dislocations. No suspicious bony lesions. Soft tissues: No joint effusion. No suspicious soft tissue calcifications. IMPRESSION: No acute bony abnormality or significant effusion. Approved by: Derrick Cárdenas M.D. on 01/07/2025 at 15:42
--- NOTE | 2025-01-07 09:45 | DI.RAD.S_ITS ---
PROCEDURE: XR KNEE LT 3V INDICATIONS: djd TECHNIQUE: 3 views of the knee were acquired. COMPARISON: [facility], CR, XR KNEE RT 1TO2V, 05/06/2021, 8:01. FINDINGS: Bones: No fractures or dislocations. No suspicious bony lesions. Soft tissues: No joint effusion. No suspicious soft tissue calcifications. IMPRESSION: No acute bony abnormality or significant effusion. Approved by: Derrick Cárdenas M.D. on 01/07/2025 at 15:42
== END ==
PROVIDERS: Family Provider Internal Medicine; PCP Registered Nurse; Referring Provider Physical Medicine & Rehabilitation; Visit Provider Physical Medicine & Rehabilitation
DX: M17.9 Osteoarthritis of knee, unspecified (principal); M54.42 Lumbago with sciatica, left side; M51.369 Other intervertebral disc degeneration, lumbar region without mention of lumbar back pain or lower extremity pain; M47.816 Spondylosis without myelopathy or radiculopathy, lumbar region; M43.16 Spondylolisthesis, lumbar region
CPT/HCPCS: 72110; 73562

== ENCOUNTER → 2025-05-09 14:26 | Outpatient (CLI) | payer OTHER, SELFPAY ==
--- NOTE | 2025-05-09 14:34 | DI.RAD.S_ITS ---
PROCEDURE: XR HIP W PEL IF DONE RT 2V INDICATIONS: R HIP PAIN S/P FALL TECHNIQUE: AP pelvis with lateral view(s) of the right hip(s). COMPARISON: None. FINDINGS: Bones: No fractures or dislocations. Pelvic ring appears intact. No suspicious bony lesions. Soft tissues: The visualized bowel gas pattern is normal. A small calcification is seen above the greater tube trochanter, which could represent calcific tendinosis , possibly within the gluteus minimus. IMPRESSION: Calcific tendinosis suspected in the right hip, probably involving the gluteus minimus. Dictated by: Flaquito Cantor M.D. on 05/09/2025 at 15:57 Approved by: Flaquito Cantor M.D. on 05/09/2025 at 15:59
== END ==
PROVIDERS: Family Provider Internal Medicine; PCP Registered Nurse; Referring Provider Family Medicine; Visit Provider Family Medicine
DX: S39.011A Strain of muscle, fascia and tendon of abdomen, initial encounter (principal); X58.XXXA Exposure to other specified factors, initial encounter
CPT/HCPCS: 73502

== ENCOUNTER 2025-05-14 08:17 | Outpatient (CLI) | payer OTHER, SELFPAY ==
[2025-05-14] VITALS (8 sets, daily range): BP systolic 110–142; BP diastolic 56–69; PULSE 67–77; RESP 12–18; TEMP 36.1; O2SAT 95–100
[2025-05-14] MEDS: MIDAZOLAM 2 MG/2 ML VIAL IV (09:26)
[2025-05-14] MEDS: LIDOCAINE 1% 20 ML 5 ML INJ (09:33)
--- NOTE | 2025-05-14 09:45 | PM.PROC.IR.1 ---
Date/Time/Diagnoses Date of procedure: 05/14/25 Time of procedure: 09:45 Pre-procedure diagnosis: 1. FACET ARTHROPATHY Post-procedure diagnosis: same Procedure Notes Procedure: 1. BILATERAL- L4, L5 and S1 DIAGNOSTIC MB BLOCKS with LA Anesthetic Indications: Deidra is referred by GLEN Rice for treatment of Bilateral Axial LBP. Physician: Flaquito Cardenas Total Fluoroscopy time (seconds): 11 Total sedation minutes: 15 Complications: none Procedure in detail & Post-procedure care: DESCRIPTION OF PROCEDURE Fluoroscopically guided, contrast-controlled bilateral L4, L5 and S1 medial branch blocks with 0.5cc of 0.5% Marcaine. Following review of allergy and review of potential side effects and complications, including, but not necessarily limited to, infection, allergic reaction, local tissue breakdown, nerve injury, paralysis, stroke and possible , the patient indicated that the patient understood and agreed to proceed. An informed consent document was signed by the patient, witnessed by a nurse, and placed in the patient's chart. After review of previous anaesthesic history and IV conscious sedation the patient was deemed safe to proceed with today's procedure with IV conscious sedation as ASA class II designation. Safety time-out was performed to confirm patient ID, procedure to be performed and site of procedure. IV sedation was accomplished with a combination of 2mg of Versed was administered by the RN after DO order, titrated to patient comfort during the course of the procedure while the patient remained responsive to all verbal commands In the prone position, following sterile prep and drape of the lumbar region, the right L4, L5 and S1 anatomical location of the medial branch of the dorsal ramus was identified fluoroscopically. Subsequently an anesthetic skin wheal using 1% lidocaine solution was initiated at each of the anatomical spots. Subsequently then a 22-gauge 3.5-inch spinal needle was atraumatically introduced and advanced under fluoroscopic guidance at each of the corresponding sites at the right L4, L5 and S1 MB. After negative aspiration, 0.2cc of Isovue 200 was injected, confirming placement without vascular or intrathecal uptake. Subsequently then 0.5cc of 0.5% Marcaine solution was injected at each of the corresponding sites at the right L4, L5 and S1 medial branch locations. The identical procedure was replicated on the left. The patient tolerated the procedure well without signs or symptoms of complications prior to transfer to the recovery area continued monitoring without incident. Post-procedure, the patient was monitored initiating provocative activities to measure the amount of relief from block of the facetogenic pain. The patient reported a VAS of 7 prior to the procedure and a post-procedure VAS of 1. It has been a pleasure to assist in the diagnostic and therapeutic care of your patient. POST OP INSTRUCTIONS The patient was provided with a Pain Log to complete over the next several hours and subsequent days prior to the patient's follow up with the ordering physician. If the patient has entertainment & media correspondent relief to the solution applied, then they may be a candidate for medial branch rhizotomy. The patient is aware, was provided, once again, with a Pain Log and will follow up with the referring physician for review and clinical correlation
== END 2025-05-14 09:58 | disposition home or self-care (01) ==
LOC: RAD 08:18
PROVIDERS: Family Provider Internal Medicine; PCP Registered Nurse; Referring Provider Registered Nurse; Visit Provider Physical Medicine & Rehabilitation
DX: M47.816 Spondylosis without myelopathy or radiculopathy, lumbar region (principal); M47.817 Spondylosis without myelopathy or radiculopathy, lumbosacral region
CPT/HCPCS: 64493; 64494; 99152; J2250

== ENCOUNTER → 2025-05-17 07:05 | Outpatient (CLI) | payer OTHER, SELFPAY ==
--- NOTE | 2025-05-17 07:06 | DI.MRI.S_ITS ---
PROCEDURE: MR HIP RT WO CON INDICATIONS: Antalgic Gait and pain s/p fall TECHNIQUE: Noncontrast coronal T1 spin echo and STIR through the bony pelvis. Coronal and axial T2 fast spin echo with fat saturation, sagittal T1 spin echo, and oblique axial T2 fast spin echo with fat saturation through the hip. COMPARISON: [facility], CR, XR HIP W PEL RT 2V, 05/09/2025, 13:44. FINDINGS: Image quality: Excellent. Bones and joints: Nondisplaced incomplete fracture lines are seen in the right pubic bone adjacent to the pubic symphysis with components extending into the superior and inferior pubic rami and moderate surrounding osseous edema. Osseous structures otherwise demonstrate normal signal. No avascular necrosis of the femoral head. Degenerative disc disease and facet hypertrophy in the included spine. Tendons and ligaments: Mild distal right gluteus medius and minimus tendinosis. The proximal iliotibial band appears intact. The iliopsoas tendon appears intact, without adjacent bursal fluid collections. The origin of the hamstring tendon demonstrates tendinosis. The tendons for the direct and indirect heads of the rectus femoris muscle appear intact. Labrum and cartilage: Mild partial-thickness cartilage irregularity in the right hip. Mild labral degeneration without an acute displaced tear. Trace joint effusion. Normal morphology of the femoral head and acetabulum. Soft tissues: Soft tissue edema is seen within the abductor musculature adjacent to the right pubic bone fractures. A small fluid collection measuring up to 11 mm is compatible with a intramuscular hematoma. There is fatty infiltration of the quadratus femoris muscle with marked narrowing of the ischiofemoral distance to approximately 6 mm, consistent with chronic ischiofemoral impingement. Pelvic soft tissues demonstrate no acute abnormality. IMPRESSION: Nondisplaced incomplete comminuted fracture of the right pubic bone involving the parasymphyseal region and the medial superior and inferior rami with surrounding osseous and soft tissue edema. A small 11 mm intramuscular hematoma is seen adjacent to the inferior ramus. Approved by: Perry Velez M.D. on 05/17/2025 at 10:32
== END ==
PROVIDERS: PCP Registered Nurse; Referring Provider Registered Nurse; Visit Provider Physical Medicine & Rehabilitation
DX: S32.591A Other specified fracture of right pubis, initial encounter for closed fracture (principal); S30.0XXA Contusion of lower back and pelvis, initial encounter; M25.559 Pain in unspecified hip; Z91.81 History of falling
CPT/HCPCS: 73721

== ENCOUNTER 2025-07-25 09:34 | Outpatient (CLI) | payer OTHER, SELFPAY ==
[2025-07-25] VITALS (8 sets, daily range): BP systolic 99–135; BP diastolic 57–90; PULSE 72–82; RESP 16–20; O2SAT 95–99
[2025-07-25] MEDS: MIDAZOLAM 2 MG/2 ML VIAL IV (11:13)
[2025-07-25] MEDS: LIDOCAINE 2% INJ MDV 20ML 5 ML INJ (11:20)
[2025-07-25] MEDS: LIDOCAINE 1% 20 ML 5 ML INJ (11:20)
--- NOTE | 2025-07-25 11:31 | P.PCN_ITS ---
Date/Time/Diagnoses Date of procedure: 07/25/25 Time of procedure: 11:31 Pre-procedure diagnosis: 1. FACET ARTHROPATHY Post-procedure diagnosis: same Procedure Notes Procedure: 1. BILATERAL- L4, L5 and S1 DIAGNOSTIC MB BLOCKS with SA Anesthetic Indications: Deidra is referred by Dr. Rice for treatment of Bilateral Axial LBP. Physician: Flaquito Cardenas Total Fluoroscopy time (seconds): 11 Total sedation minutes: 12 Complications: none Procedure in detail & Post-procedure care: DESCRIPTION OF PROCEDURE Fluoroscopically guided, contrast-controlled bilateral L4, L5 and S1 medial branch blocks with 0.5cc of 2% Lidocaine. Following review of allergy and review of potential side effects and complications, including, but not necessarily limited to, infection, allergic reaction, local tissue breakdown, nerve injury, paralysis, stroke and possible , the patient indicated that the patient understood and agreed to proceed. An informed consent document was signed by the patient, witnessed by a nurse, and placed in the patient's chart. After review of previous anaesthesic history and IV conscious sedation the patient was deemed safe to proceed with today's procedure with IV conscious sedation as ASA class II designation. Safety time-out was performed to confirm patient ID, procedure to be performed and site of procedure. IV sedation was accomplished with a combination of 2mg of Versed was administered by the RN after DO order, titrated to patient comfort during the course of the procedure while the patient remained responsive to all verbal commands In the prone position, following sterile prep and drape of the lumbar region, the right L4, L5 and S1 anatomical location of the medial branch of the dorsal ramus was identified fluoroscopically. Subsequently an anesthetic skin wheal using 1% lidocaine solution was initiated at each of the anatomical spots. Subsequently then a 22-gauge 3.5-inch spinal needle was atraumatically introduced and advanced under fluoroscopic guidance at each of the corresponding sites at the right L4, L5 and S1 MB. After negative aspiration, 0.2cc of Isovue 200 was injected, confirming placement without vascular or intrathecal uptake. Subsequently then 0.5cc of 2% Lidocaine solution was injected at each of the corresponding sites at the right L4, L5 and S1 medial branch locations. The identical procedure was replicated on the left. The patient tolerated the procedure well without signs or symptoms of complications prior to transfer to the recovery area continued monitoring without incident. Post-procedure, the patient was monitored initiating provocative activities to measure the amount of relief from block of the facetogenic pain. The patient reported a VAS of 7 prior to the procedure and a post-procedure VAS of 1. It has been a pleasure to assist in the diagnostic and therapeutic care of your patient. POST OP INSTRUCTIONS The patient was provided with a Pain Log to complete over the next several hours and subsequent days prior to the patient's follow up with the ordering physician. If the patient has emergency planning and response manager relief to the solution applied, then they may be a candidate for medial branch rhizotomy. The patient is aware, was provided, once again, with a Pain Log and will follow up with the referring physician for review and clinical correlation
== END 2025-07-25 12:09 | disposition home or self-care (01) ==
LOC: RAD 09:35
PROVIDERS: PCP Registered Nurse; Referring Provider Physical Medicine & Rehabilitation; Visit Provider Physical Medicine & Rehabilitation
DX: M47.816 Spondylosis without myelopathy or radiculopathy, lumbar region (principal); M47.817 Spondylosis without myelopathy or radiculopathy, lumbosacral region
CPT/HCPCS: 64493; 64494; 99152; J2250